=== PATIENT | male | born 1980 | race African-American/Black ===

== ENCOUNTER 2016-07-19 09:10 | Inpatient (IN) | payer SELFPAY ==
[2016-07-19] MEDS ORDERED: NORMAL SALINE 1000 ML 1,000 ML IV ONE (09:44)
[2016-07-19] MEDS ORDERED: HYDROMORPHONE HCL INJ/PF 2 MG/ML AMPULE IV ONE ×2 (09:44→13:16)
[2016-07-19] MEDS ORDERED: ONDANSETRON HCL INJ/PF 4 MG/2 ML SDV IV ONE (09:44)
[2016-07-19] MEDS ORDERED: ONDANSETRON 4 MG TAB.RAPDIS PO ONE (09:44)
--- NOTE | 2016-07-19 09:45 | ER Document Report ---
ED Medical Screen (RME) - General Mode of Arrival: Ambulatory Information source: Patient TRAVEL OUTSIDE OF THE [place] IN LAST 30 DAYS: No - HPI Patient complains to provider of: abdominal pain <DARIUS CONCEPCION - Last Filed: 07/19/16 10:30> <KIRK PALACIOS - Last Filed: 07/19/16 21:29> - General Chief Complaint: Abdominal Pain Stated Complaint: ABDOMINAL PAIN,VOMITING Time Seen by Provider: 07/19/16 09:39 Notes: Patient presents to ED complaining of abdominal pain onset this morning. patient reports that he has a history of alcohol induced pancreatitis and states he did drink yesterday at 1900. Patient also complains of vomiting this morning, chills. Patient is not on any medications. Patient is a smoker and does smoke marijuana occassionally. Patient states he took 2 of his 's Indomethacin at 0630. (DARIUS CONCEPCION) - Related Data Allergies/Adverse Reactions: No Known Allergies Allergy (Verified 07/19/16 09:37) Past Medical History - General Information source: Patient - Social History Cigarette use (# per day): Yes Chew tobacco use (# tins/day): No Drug Abuse: Marijuana Renal/ Medical History: Denies: Hx Peritoneal Dialysis <DARIUS CONCEPCION - Last Filed: 07/19/16 10:30> Review of Systems - Review of Systems Gastrointestinal: See HPI, Abdominal pain <DARIUS CONCEPCION - Last Filed: 07/19/16 10:30> Physical Exam - General General appearance: Other - appears uncomfortable, shivering - Abdominal Tenderness: Tender - diffuse, but worse epigastric tendreness to palpation - Skin Skin Color: Normal - no rash <DARIUS CONCEPCION - Last Filed: 07/19/16 10:30> Course - Laboratory Result Diagrams: 07/19/16 10:58 07/19/16 10:58 <KIRK PALACIOS - Last Filed: 07/19/16 21:29> - Vital Signs Vital signs: Temp Pulse Resp BP Pulse Ox 97.5 F 71 18 142/98 H 96 07/19/16 19:41 07/19/16 19:41 07/19/16 19:41 07/19/16 19:41 07/19/16 19:41 - Laboratory Laboratory results interpreted by me: 07/19/16 07/19/16 10:58 10:58 Plt Count 106 L Seg Neutrophils % 84.1 H Lymphocytes % 8.8 L Glucose 124 H AST 114 H ALT 109 H Amylase 290 H Lipase 1262.2 H Doctor's Discharge <DARIUS CONCEPCION - Last Filed: 07/19/16 10:30> <KIRK PALACIOS - Last Filed: 07/19/16 21:29> - Discharge Clinical Impression: acute pancreatitis Condition: Stable Disposition: ADMITTED INPATIENT Scribe Documentation - Scribe Written by Osvaldoe:: demetri Walsh, 07/19/16, 1031 acting as scribe for :: Lele <DARIUS CONCEPCION - Last Filed: 07/19/16 10:30>
[2016-07-19 11:30] LABS: ABSOLUTE LYMPHOCYTES (AUTO) 0.6 10^3/uL (0.5-4.7); ABSOLUTE MONOCYTES (AUTO) 0.5 10^3/uL (0.1-1.4); BASOPHILS % (AUTO) 0.1 % (0-2); EOSINOPHILS % (AUTO) 0.1 % (0-6); HEMATOCRIT 43.1 % (37.9-51.0); HEMOGLOBIN 14.5 g/dL (13.5-17.0); HGB HCT DIFFERENCE 0.4; LYMPHOCYTES % (AUTO) 8.8 % (13-45); MEAN CORPUSCULAR HEMOGLOBIN 30.2 pg (27.0-33.4); MEAN CORPUSCULAR HGB CONC 33.6 g/dL (32.0-36.0); MEAN CORPUSCULAR VOLUME 90 fl (80-97); MONOCYTES % (AUTO) 6.9 % (3-13); RED CELL DISTRIBUTION WIDTH 13.8 % (11.5-14.0); SEGMENTED NEUTROPHILS % (AUTO) 84.1 % (42-78); WHITE BLOOD COUNT 7.1 10^3/uL (4.0-10.5)
[2016-07-19 11:34] LABS: ALANINE AMINOTRANSFERASE 109 U/L (21-72); ALBUMIN 4.6 g/dL (3.5-5.0); ALKALINE PHOSPHATASE 66 U/L (38-126); AMYLASE 290 U/L (30-110); ANION GAP 13 (5-19); ASPARTATE AMINO TRANSFERASE 114 U/L (17-59); BILIRUBIN,DIRECT 0.3 mg/dL (0.0-0.4); BILIRUBIN,TOTAL 0.8 mg/dL (0.2-1.3); BLOOD UREA NITROGEN 10 mg/dL (7-20); CALCIUM 9.8 mg/dL (8.4-10.2); CARBON DIOXIDE 28 mmol/L (22-30); CHLORIDE 100 mmol/L (98-107); CREATININE RESULT 0.85 mg/dL (0.52-1.25); GLUCOSE 124 mg/dL (75-110); LIPASE 1262.2 U/L (23-300); POTASSIUM 4.6 mmol/L (3.6-5.0); SODIUM 141.2 mmol/L (137-145); TOTAL PROTEIN 8.1 g/dL (6.3-8.2)
[2016-07-19 11:39] LABS: ALCOHOL < 10 mg/dL (NONE DETECTED)
[2016-07-19] MEDS ORDERED: NORMAL SALINE 1000 ML 1,000 ML IV PRN ×2 (14:05→14:46)
--- NOTE | 2016-07-19 14:07 | ER Document Report ---
ED General - General Chief Complaint: Abdominal Pain Stated Complaint: ABDOMINAL PAIN,VOMITING Time Seen by Provider: 07/19/16 09:39 Mode of Arrival: Ambulatory Information source: Patient Notes: This is a 35-year-old male with a history of alcohol pancreatitis who presents to the emergency room with nausea, vomiting, epigastric pain. Patient states he did drink 4-5 beers yesterday. Medicines: None Allergies: None Past surgical history: None Primary care physician: None TRAVEL OUTSIDE OF THE [place] IN LAST 30 DAYS: No - HPI Onset: Just prior to arrival Onset/Duration: Sudden Quality of pain: Dull Severity: Moderate Pain Level: 4 Associated symptoms: Nausea, Vomiting. denies: Chills, Nonproductive cough, Productive cough, Fever, Shortness of breath Exacerbated by: Denies Relieved by: Denies Similar symptoms previously: Yes Recently seen / treated by doctor: No - Related Data Allergies/Adverse Reactions: No Known Allergies Allergy (Verified 07/19/16 09:37) Past Medical History - General Information source: Patient - Social History Smoking Status: Current Every Day Smoker Cigarette use (# per day): Yes - 1 pack per day Chew tobacco use (# tins/day): No Frequency of alcohol use: Heavy Drug Abuse: Marijuana Lives with: Family Family History: Reviewed & Not Pertinent Patient has suicidal ideation: No Patient has homicidal ideation: No - Past Medical History Cardiac Medical History: Reports: None Pulmonary Medical History: Reports: None EENT Medical History: Reports: None Neurological Medical History: Reports: None Endocrine Medical History: Reports: None Renal/ Medical History: Reports: None. Denies: Hx Peritoneal Dialysis Malignancy Medical History: Reports None GI Medical History: Reports: Other - Pancreatitis Musculoskeltal Medical History: Reports None Skin Medical History: Reports None Psychiatric Medical History: Reports: None Traumatic Medical History: Reports: None Infectious Medical History: Reports: None Surgical Hx: Negative Review of Systems - Review of Systems Constitutional: denies: Chills, Fever EENT: No symptoms reported Cardiovascular: No symptoms reported Respiratory: No symptoms reported Gastrointestinal: See HPI Genitourinary: No symptoms reported Male Genitourinary: No symptoms reported Musculoskeletal: No symptoms reported Skin: No symptoms reported Hematologic/Lymphatic: No symptoms reported Neurological/Psychological: No symptoms reported Physical Exam - Vital signs Vitals: Temp Pulse Resp BP Pulse Ox 97.6 F 61 21 H 135/94 H 99 07/19/16 09:27 07/19/16 09:27 07/19/16 09:27 07/19/16 09:27 07/19/16 09:27 Notes: Physical exam: GENERAL: 35-year-old man, alert and oriented 3, no acute distress HEAD: Atraumatic, normocephalic. EYES: Pupils equal round and reactive to light, extraocular movements intact, sclera anicteric, conjunctiva are normal. ENT: TMs normal, nares patent, oropharynx clear without exudates. Moist mucous membranes. NECK: Normal range of motion, supple without lymphadenopathy or JVD. LUNGS: Breath sounds clear to auscultation bilaterally and equal. No wheezes rales or rhonchi. HEART: Regular rate and rhythm without murmurs, rubs or gallops. ABDOMEN: Soft, normoactive bowel sounds. No tenderness to palpation. No guarding, no rebound. No masses appreciated. EXTREMITIES: Normal range of motion, no pitting or edema. No clubbing or cyanosis. NEUROLOGICAL: Cranial nerves II through XII grossly intact. Normal speech, normal gait. PSYCH: Normal mood, normal affect. SKIN: Warm, Dry, normal turgor, no rashes or lesions noted. Course - Vital Signs Vital signs: Temp Pulse Resp BP Pulse Ox 97.6 F 61 21 H 135/94 H 99 07/19/16 09:27 07/19/16 09:27 07/19/16 09:27 07/19/16 09:27 07/19/16 09:27 - Laboratory Result Diagrams: 07/19/16 10:58 07/19/16 10:58 Laboratory results interpreted by me: 07/19/16 07/19/16 10:58 10:58 Plt Count 106 L Seg Neutrophils % 84.1 H Lymphocytes % 8.8 L Glucose 124 H AST 114 H ALT 109 H Amylase 290 H Lipase 1262.2 H - Diagnostic Test Radiology reviewed: Image reviewed, Reports reviewed - Ultrasound of the abdomen shows no acute pathology Discharge - Discharge Clinical Impression: acute pancreatitis Condition: Stable Disposition: ADMITTED INPATIENT Admitting Provider: Hospitalist - Dr Torres Unit Admitted: Medical Floor
[2016-07-19] MEDS ORDERED: LEVALBUTEROL HCL NEB 0.63 MG/3 ML AMPUL NEB PRN (14:46)
[2016-07-19] MEDS ORDERED: ONDANSETRON HCL INJ/PF 4 MG/2 ML SDV IV PRN (14:46)
[2016-07-19] MEDS ORDERED: ACETAMINOPHEN 325 MG TABLET PO PRN (14:46)
[2016-07-19] MEDS ORDERED: LORAZEPAM INJ 2 MG/1 ML VIAL IV PRN (14:51)
--- NOTE | 2016-07-19 15:01 | PDOC H&P ---
History of Present Illness Admission Date/PCP: 07/19/2016 Patient complains of: Abdominal pain History of Present Illness: SHARON WEBBER is a 35 year old male with a previous history of pancreatitis who recently moved to the area from [place] presents with abdominal pain. Patient reports is been drinking for 5 beers nightly and had his last beer last night. This morning he woke up with left upper quadrant pain and radiates through to his back. He complains of nausea but no vomiting. Denies any melena or bright red blood per rectum. Patient is found to have pancreatitis but no evidence for gallstones. The patient denies any fevers or chills or night sweats. He denies any jaundice. Past Medical History Cardiac Medical History: Reports: None Pulmonary Medical History: Reports: None Neurological Medical History: Reports: None Endocrine Medical History: Reports: None Renal/ Medical History: Reports: None Malignancy Medical History: Reports: None GI Medical History: Reports: Other - History of pancreatitis Musculoskeltal Medical History: Reports: None Skin Medical History: Reports: None Psychiatric Medical History: Reports: None Traumatic Medical History: Reports: None Hematology: Reports: None Infectious Medical History: Reports: None Past Surgical History Past Surgical History: Reports: None Social History Information Source: Patient Lives with: Spouse/Significant other Smoking Status: Current Some Day Smoker Frequency of Alcohol Use: Heavy Hx Recreational Drug Use: No Drugs: None Hx Prescription Drug Abuse: No - Advance Directive Resuscitation Status: Full Code Surrogate healthcare decision maker:: . Family History Family History: This 57 alive and has hypertension and COPD. Mother is 53 alive and has hypertension Parental Family History Reviewed: Yes Children Family History Reviewed: No Sibling(s) Family History Reviewed.: No Medication/Allergy Allergies/Adverse Reactions: No Known Allergies Allergy (Verified 07/19/16 09:37) Review of Systems Constitutional: ABSENT: chills, fever(s), headache(s), weight gain, weight loss Eyes: ABSENT: visual disturbances Ears: ABSENT: hearing changes Cardiovascular: ABSENT: chest pain, dyspnea on exertion, edema, orthropnea, palpitations Respiratory: ABSENT: cough, hemoptysis Gastrointestinal: PRESENT: as per HPI, nausea. ABSENT: diarrhea, heartburn, hematemesis, hematochezia, melena, vomiting Genitourinary: ABSENT: dysuria, hematuria Musculoskeletal: ABSENT: joint swelling Integumentary: ABSENT: rash, wounds Neurological: ABSENT: abnormal gait, abnormal speech, confusion, dizziness, focal weakness, syncope Psychiatric: ABSENT: anxiety, depression, homidical ideation, suicidal ideation Endocrine: ABSENT: cold intolerance, heat intolerance, polydipsia, polyuria Physical Exam Vital Signs: Temp Pulse Resp BP Pulse Ox 97.6 F 61 21 H 135/94 H 99 07/19/16 09:27 07/19/16 09:27 07/19/16 09:27 07/19/16 09:27 07/19/16 09:27 Intake & Output 07/18/16 07/19/16 07/20/16 06:59 06:59 06:59 Weight 71.3 kg General appearance: PRESENT: no acute distress, well-developed, well-nourished Head exam: PRESENT: atraumatic, normocephalic Eye exam: PRESENT: conjunctiva pink, EOMI, PERRLA. ABSENT: scleral icterus Ear exam: PRESENT: normal external ear exam Mouth exam: PRESENT: moist, tongue midline Neck exam: ABSENT: carotid bruit, JVD, lymphadenopathy, thyromegaly Respiratory exam: PRESENT: clear to auscultation kosta. ABSENT: rales, rhonchi, wheezes Cardiovascular exam: PRESENT: RRR. ABSENT: diastolic murmur, rubs, systolic murmur Pulses: PRESENT: normal dorsalis pedis pul Vascular exam: PRESENT: normal capillary refill GI/Abdominal exam: PRESENT: normal bowel sounds, tenderness - Moderate left upper quadrant tenderness but no guarding or rebound.. ABSENT: distended, guarding, mass, organolmegaly, rebound Rectal exam: PRESENT: deferred Extremities exam: ABSENT: calf tenderness, clubbing, pedal edema Neurological exam: PRESENT: alert, awake, oriented to person, oriented to place , oriented to time, oriented to situation, CN II-XII grossly intact. ABSENT: motor sensory deficit Psychiatric exam: PRESENT: appropriate affect, normal mood. ABSENT: homicidal ideation, suicidal ideation Skin exam: PRESENT: dry, intact, warm. ABSENT: cyanosis, rash Results Laboratory Results: 07/19/16 10:58 07/19/16 10:58 07/19/16 07/19/16 10:58 10:58 WBC 7.1 RBC 4.80 Hgb 14.5 Hct 43.1 MCV 90 MCH 30.2 MCHC 33.6 RDW 13.8 Plt Count 106 L Seg Neutrophils % 84.1 H Lymphocytes % 8.8 L Monocytes % 6.9 Eosinophils % 0.1 Basophils % 0.1 Absolute Neutrophils 6.0 Absolute Lymphocytes 0.6 Absolute Monocytes 0.5 Absolute Eosinophils 0.0 Absolute Basophils 0.0 Sodium 141.2 Potassium 4.6 Chloride 100 Carbon Dioxide 28 Anion Gap 13 BUN 10 Creatinine 0.85 Est GFR ( Amer) > 60 Est GFR (Non-Af Amer) > 60 Glucose 124 H Calcium 9.8 Total Bilirubin 0.8 AST 114 H ALT 109 H Alkaline Phosphatase 66 Total Protein 8.1 Albumin 4.6 Amylase 290 H Lipase 1262.2 H Impressions: Abdomen Ultrasound 07/19/16 09:44 IMPRESSION: NORMAL RIGHT UPPER QUADRANT ULTRASOUND. Assessment & Plan - Diagnosis (1) Pancreatitis Is this a current diagnosis for this admission?: YesPlan: Patient has pancreatitis from drinking. He drank 45 beers every night recently. He has had previous episodes of pancreatitis. Ultrasound is negative for any type of gallstones. We'll admit make him nothing by mouth. We 'll give IV fluids and IV narcotics. (2) Alcohol abuse Is this a current diagnosis for this admission?: YesPlan: Patient is encouraged to quit drinking. He has no history of delirium tremens however will will write for Ativan to use when necessary. - Time Time Spent: 50 to 70 Minutes - Inpatient Certification Medical Necessity: Need Close Monitoring Due to Risk of Patient Decompensation
[2016-07-19] MEDS: ONDANSETRON 4 MG TAB.RAPDIS PO PRN (16:00)
[2016-07-19] MEDS: HYDROMORPHONE HCL INJ/PF 2 MG/ML AMPULE IV PRN ×2 (16:01→20:07)
[2016-07-20] MEDS: HYDROMORPHONE HCL INJ/PF 2 MG/ML AMPULE IV PRN ×5 (00:34→23:20)
[2016-07-20] MEDS: ONDANSETRON 4 MG TAB.RAPDIS PO PRN (06:30)
[2016-07-20 07:44] LABS: HEMATOCRIT 38.9 % (37.9-51.0); HEMOGLOBIN 13.3 g/dL (13.5-17.0); MEAN CORPUSCULAR HEMOGLOBIN 31.2 pg (27.0-33.4); MEAN CORPUSCULAR HGB CONC 34.2 g/dL (32.0-36.0); MEAN CORPUSCULAR VOLUME 91 fl (80-97); RED BLOOD COUNT 4.26 10^6/uL (4.35-5.55); RED CELL DISTRIBUTION WIDTH 13.6 % (11.5-14.0); WHITE BLOOD COUNT 6.1 10^3/uL (4.0-10.5)
[2016-07-20 07:48] LABS: ANION GAP 11 (5-19); BLOOD UREA NITROGEN 10 mg/dL (7-20); CALCIUM 9.1 mg/dL (8.4-10.2); CARBON DIOXIDE 25 mmol/L (22-30); CHLORIDE 102 mmol/L (98-107); CREATININE RESULT 0.79 mg/dL (0.52-1.25); GLUCOSE 79 mg/dL (75-110); LIPASE 1844.7 U/L (23-300); POTASSIUM 4.2 mmol/L (3.6-5.0); SODIUM 138.1 mmol/L (137-145)
--- NOTE | 2016-07-20 11:45 | PDOC PROGRESS REPORT ---
Subjective Progress Note for:: 07/20/16 Subjective:: Still complains of abdominal pain. Physical Exam Vital Signs: Temp Pulse Resp BP Pulse Ox 98.1 F 78 15 130/85 H 100 07/20/16 07:10 07/20/16 07:10 07/20/16 07:10 07/20/16 07:10 07/20/16 07:10 Intake & Output 07/19/16 07/20/16 07/21/16 06:59 06:59 06:59 Intake Total 2039 Balance 2039 Weight 74.2 kg General appearance: PRESENT: no acute distress Eye exam: PRESENT: conjunctiva pink. ABSENT: scleral icterus Mouth exam: PRESENT: moist, tongue midline Neck exam: ABSENT: JVD Respiratory exam: PRESENT: clear to auscultation kosta. ABSENT: rales, rhonchi, wheezes Cardiovascular exam: PRESENT: RRR. ABSENT: diastolic murmur, rubs, systolic murmur GI/Abdominal exam: PRESENT: normal bowel sounds, soft, tenderness - Moderate epigastric tenderness but no guarding or rebound.. ABSENT: distended, guarding , mass, organolmegaly, rebound Extremities exam: ABSENT: calf tenderness, clubbing, pedal edema Neurological exam: PRESENT: alert, awake, oriented to person, oriented to place , oriented to time, oriented to situation, CN II-XII grossly intact. ABSENT: motor sensory deficit Psychiatric exam: PRESENT: appropriate affect Skin exam: PRESENT: dry, intact, warm. ABSENT: cyanosis, rash Results Laboratory Results: 07/20/16 06:25 07/20/16 06:25 07/20/16 07/20/16 06:25 06:25 WBC 6.1 RBC 4.26 L Hgb 13.3 L Hct 38.9 MCV 91 MCH 31.2 MCHC 34.2 RDW 13.6 Plt Count 89 L Sodium 138.1 Potassium 4.2 Chloride 102 Carbon Dioxide 25 Anion Gap 11 BUN 10 Creatinine 0.79 Est GFR ( Amer) > 60 Est GFR (Non-Af Amer) > 60 Glucose 79 Calcium 9.1 Lipase 1844.7 H Impressions: Abdomen Ultrasound 07/19/16 09:44 IMPRESSION: NORMAL RIGHT UPPER QUADRANT ULTRASOUND. Assessment & Plan - Diagnosis (1) Pancreatitis Is this a current diagnosis for this admission?: YesPlan: Patient has pancreatitis from drinking. He has had previous episodes of pancreatitis. Ultrasound is negative for any type of gallstones. Continue IV fluids and narcotics. (2) Alcohol abuse Is this a current diagnosis for this admission?: YesPlan: Patient is encouraged to quit drinking. He has no history of delirium tremens however will will write for Ativan to use when necessary. - Time Time Spent with patient: 25-34 minutes - Inpatient Certification Medical Necessity: Need For IV Fluids, Need for Pain Control
[2016-07-21] MEDS: HYDROMORPHONE HCL INJ/PF 2 MG/ML AMPULE IV PRN ×2 (03:18→08:16)
[2016-07-21 05:17] LABS: ABSOLUTE EOSINOPHILS # (AUTO) 0.1 10^3/uL (0.0-0.6); ABSOLUTE MONOCYTES (AUTO) 0.4 10^3/uL (0.1-1.4); ABSOLUTE NEUT (AUTO) 3.7 10^3/uL (1.7-8.2); BASOPHILS % (AUTO) 0.5 % (0-2); EOSINOPHILS % (AUTO) 1.2 % (0-6); HEMATOCRIT 37.4 % (37.9-51.0); HEMOGLOBIN 12.8 g/dL (13.5-17.0); LYMPHOCYTES % (AUTO) 19.1 % (13-45); MEAN CORPUSCULAR HEMOGLOBIN 31.1 pg (27.0-33.4); MEAN CORPUSCULAR HGB CONC 34.1 g/dL (32.0-36.0); MEAN CORPUSCULAR VOLUME 91 fl (80-97); MONOCYTES % (AUTO) 8.2 % (3-13); RED BLOOD COUNT 4.11 10^6/uL (4.35-5.55); RED CELL DISTRIBUTION WIDTH 14.2 % (11.5-14.0); WHITE BLOOD COUNT 5.2 10^3/uL (4.0-10.5)
[2016-07-21 05:40] LABS: ANION GAP 13 (5-19); BLOOD UREA NITROGEN 10 mg/dL (7-20); CALCIUM 8.9 mg/dL (8.4-10.2); CARBON DIOXIDE 23 mmol/L (22-30); CHLORIDE 102 mmol/L (98-107); CREATININE RESULT 0.82 mg/dL (0.52-1.25); GLUCOSE 71 mg/dL (75-110); SODIUM 137.9 mmol/L (137-145)
[2016-07-21] MEDS ORDERED: OXYCODONE HCL IR 5 MG TABLET PO PRN (08:37)
[2016-07-21 13:14] VITALS: BP 128/92
--- NOTE | 2016-07-21 13:15 | PDOC DISCHARGE SUMMARY ---
General - Admit/Disc Date/PCP Admission Date/Primary Care Provider: 07/19/16 14:46 Discharge Date: 07/21/16 - Discharge Diagnosis (1) Pancreatitis Is this a current diagnosis for this admission?: YesSummary: Secondary to alcohol abuse (2) Alcohol abuse Is this a current diagnosis for this admission?: Yes - Additional Information Resuscitation Status: Full Code Discharge Diet: Regular - low fat Discharge Activity: Activity As Tolerated Home Medications: Oxycodone HCl [Oxy-Ir 5 mg Tablet] 5 mg PO Q6HP PRN #30 tablet 07/21/16 History of Present Illness History of Present Illness: SHARON WEBBER is a 35 year old male with a previous history of pancreatitis who recently moved to the area from [place] presents with abdominal pain. Patient reports is been drinking for 5 beers nightly and had his last beer last night. This morning he woke up with left upper quadrant pain and radiates through to his back. He complains of nausea but no vomiting. Denies any melena or bright red blood per rectum. Patient is found to have pancreatitis but no evidence for gallstones. The patient denies any fevers or chills or night sweats. He denies any jaundice. Hospital Course Hospital Course: I feel gentleman who presented with pancreatitis secondary to alcohol abuse. The patient was admitted and given IV fluids, IV narcotics and made nothing by mouth. The patient had improvement in his symptoms on the day of discharge she was still having some mild pain that was controlled with oxycodone and was felt that he could be discharged home. He is instructed not to drink anymore alcohol. Physical Exam Vital Signs: Temp Pulse Resp BP Pulse Ox 98.6 F 66 18 131/80 H 95 07/21/16 07:56 07/21/16 07:56 07/21/16 07:56 07/21/16 07:56 07/21/16 07:56 Intake & Output 07/20/16 07/21/16 07/22/16 06:59 06:59 06:59 Intake Total 2039 3257 Balance 2039 3257 Weight 74.2 kg 75.7 kg General appearance: PRESENT: no acute distress Eye exam: PRESENT: conjunctiva pink. ABSENT: scleral icterus Mouth exam: PRESENT: moist, tongue midline Neck exam: ABSENT: JVD Respiratory exam: PRESENT: clear to auscultation kosta. ABSENT: rales, rhonchi, wheezes Cardiovascular exam: PRESENT: RRR. ABSENT: diastolic murmur, rubs, systolic murmur GI/Abdominal exam: PRESENT: normal bowel sounds, soft. ABSENT: distended, guarding, mass, organolmegaly, rebound, tenderness Extremities exam: ABSENT: calf tenderness, clubbing, pedal edema Neurological exam: PRESENT: alert, awake, oriented to person, oriented to place , oriented to time, oriented to situation, CN II-XII grossly intact. ABSENT: motor sensory deficit Psychiatric exam: PRESENT: appropriate affect Skin exam: PRESENT: dry, intact, warm. ABSENT: cyanosis, rash Results Laboratory Results: 07/21/16 04:51 07/21/16 04:51 07/21/16 07/21/16 04:51 04:51 WBC 5.2 RBC 4.11 L Hgb 12.8 L Hct 37.4 L MCV 91 MCH 31.1 MCHC 34.1 RDW 14.2 H Plt Count 82 L Seg Neutrophils % 71.0 Lymphocytes % 19.1 Monocytes % 8.2 Eosinophils % 1.2 Basophils % 0.5 Absolute Neutrophils 3.7 Absolute Lymphocytes 1.0 Absolute Monocytes 0.4 Absolute Eosinophils 0.1 Absolute Basophils 0.0 Sodium 137.9 Potassium 4.0 Chloride 102 Carbon Dioxide 23 Anion Gap 13 BUN 10 Creatinine 0.82 Est GFR ( Amer) > 60 Est GFR (Non-Af Amer) > 60 Glucose 71 L Calcium 8.9 Lipase 514.0 H Impressions: Abdomen Ultrasound 07/19/16 09:44 IMPRESSION: NORMAL RIGHT UPPER QUADRANT ULTRASOUND. Qualifiers PATEINT BEING DISCHARGED WITH ANY OF THE FOLLOWING DIAGNOSIS?: No Plan Discharge Plan: Patient is discharged home in stable condition. Follow-up with his primary care doctor in 2 weeks. Time Spent: Less than 30 Minutes
== END 2016-07-21 13:15 | disposition home or self-care (01) | DRG 440 ==
LOC: ER 09:10 → EH 14:46 → UNDOADMIN 14:56 → 5 17:00
PROVIDERS: ADMIT Internal Medicine; ATTEND Internal Medicine
DX: K85.20 Alcohol induced acute pancreatitis without necrosis or infection (principal); F10.10 Alcohol abuse, uncomplicated; F17.200 Nicotine dependence, unspecified, uncomplicated; F17.210 Nicotine dependence, cigarettes, uncomplicated; Z82.49 Family history of ischemic heart disease and other diseases of the circulatory system
CPT/HCPCS: 36415; 76705; 80048; 80053; 80307; 82150; 83690; 85025; 85027; 96374; 96375; 96376; 99285; J1170; J2405; J7030; S0119

== ENCOUNTER 2016-07-21 18:58 | Emergency (ER) | payer SELFPAY ==
[2016-07-21 19:03] VITALS: BP 152/98
[2016-07-21] MEDS ORDERED: ONDANSETRON 4 MG TAB.RAPDIS PO ONE (20:24)
[2016-07-21] MEDS ORDERED: OXYCODONE-ACETAMINOPHEN 5-325 MG TABLET PO ONE (20:24)
--- NOTE | 2016-07-21 20:26 | ER Document Report ---
ED GI/ - General Chief Complaint: Abdominal Pain Stated Complaint: ABDOMINAL PAIN Time Seen by Provider: 07/21/16 20:18 Notes: Patient is a 55-year-old male that comes emergency department for chief complaint of upper abdominal pain. He reports he was just discharged today after being admitted for acute alcoholic pancreatitis, patient states he went home and the medications he was on more often he was experiencing some pain, he has not filled his prescriptions yet, he states he was only drinking fluids, he denies any alcohol use since admission to the hospital. Patient denies fever, vomiting, abnormal bowel movements, bloody stools, flank pain. Patient denies any surgeries, denies any other medical history other than alcohol abuse and pancreatitis previously. He denies any daily medications. TRAVEL OUTSIDE OF THE [place] IN LAST 30 DAYS: No - Related Data Allergies/Adverse Reactions: No Known Allergies Allergy (Verified 07/21/16 19:00) Past Medical History - General Information source: Patient - Social History Smoking Status: Never Smoker Frequency of alcohol use: Heavy Drug Abuse: None Lives with: Family Family History: Reviewed & Not Pertinent Patient has suicidal ideation: No Patient has homicidal ideation: No Renal/ Medical History: Denies: Hx Peritoneal Dialysis Psychiatric Medical History: Denies: Hx Depression Surgical Hx: Negative - Immunizations Hx Diphtheria, Pertussis, Tetanus Vaccination: Yes Review of Systems - Review of Systems Constitutional: No symptoms reported EENT: No symptoms reported Cardiovascular: No symptoms reported Respiratory: No symptoms reported Gastrointestinal: See HPI Genitourinary: No symptoms reported Male Genitourinary: No symptoms reported Musculoskeletal: No symptoms reported Skin: No symptoms reported Hematologic/Lymphatic: No symptoms reported Neurological/Psychological: No symptoms reported Physical Exam - Vital signs Vitals: Temp Pulse Resp BP Pulse Ox 98.6 F 79 18 152/98 H 100 07/21/16 19:01 07/21/16 19:01 07/21/16 19:01 07/21/16 19:01 07/21/16 19:01 Interpretation: Normal - General General appearance: Appears well, Alert In distress: None - Patient is alert, well appearing, does not appear to be in any distress - HEENT Head: Normocephalic, Atraumatic Eyes: Normal Extraocular movements intact: Yes Eyelashes: Normal Pupils: PERRL Mouth/Lips: Normal Mucous membranes: Normal Pharynx: Normal Neck: Normal - Respiratory Respiratory status: No respiratory distress Chest status: Nontender Breath sounds: Normal. No: Decreased air movement, Wheezing Chest palpation: Normal - Cardiovascular Rhythm: Regular. No: Tachycardia Heart sounds: Normal auscultation, S1 appreciated, S2 appreciated Murmur: No - Abdominal Inspection: Normal Distension: No distension Bowel sounds: Normal Tenderness: Tender - There is very mild tenderness in the generalized upper abdomen, no guarding, no Calixto's sign, lower abdomen is unremarkable Organomegaly: No organomegaly - Back Back: Normal, Nontender. No: Tender - Extremities General upper extremity: Normal inspection, Nontender, Normal color, Normal ROM , Normal temperature General lower extremity: Normal inspection, Nontender, Normal color, Normal ROM , Normal temperature, Normal weight bearing. No: Lazara's sign - Neurological Neuro grossly intact: Yes Cognition: Normal Orientation: AAOx4 [place] Coma Scale Eye Opening: Spontaneous Tee Coma Scale Verbal: Oriented Tee Coma Scale Motor: Obeys Commands Tee Coma Scale Total: 15 Speech: Normal Cranial nerves: Normal Cerebellar coordination: Normal Motor strength normal: LUE, RUE, LLE, RLE Additional motor exam normals: Equal knot picker cloth Sensory: Normal - Psychological Associated symptoms: Normal affect, Normal mood - Skin Skin Temperature: Warm Skin Moisture: Dry Skin Color: Normal Course - Re-evaluation Re-evalutation: Patient is well-appearing, very mild tenderness on exam with no guarding, tolerated by mouth medications without any difficulty. CBC unremarkable, chemistry unremarkable, lipase is decreased from prior at only 500 compared to maximum of 1800. Vital signs unremarkable. Discussed findings with patient, patient states relief that he is not worsening, he is asking to leave. Patient' s father is with him at bedside. Patient will be discharged home, discussed follow-up, discussed return precautions, patient states that he plans to never touch alcohol again. - Vital Signs Vital signs: Temp Pulse Resp BP Pulse Ox 98.6 F 79 18 152/98 H 100 07/21/16 19:01 07/21/16 19:01 07/21/16 19:01 07/21/16 19:01 07/21/16 19:01 - Laboratory Result Diagrams: 07/21/16 22:10 07/21/16 21:28 Laboratory results interpreted by me: 07/21/16 07/21/16 21:28 22:10 RBC 4.33 L Hgb 13.3 L Plt Count 97 L Lymphocytes % 12.4 L Lipase 500.3 H Discharge - Discharge Clinical Impression: Abdominal pain Qualifiers: Abdominal location: epigastric Qualified Code(s): R10.13 - Epigastric pain Condition: Stable Disposition: HOME, SELF-CARE Additional Instructions: Your lipase has significantly decreased from the initial measurements. Examination, vital signs, and workup otherwise good. Continue plenty of fluids, start with bland food, avoid fatty food initially, avoid any alcohol. Follow-up with primary care. Return to the emergency department for any concerning symptoms. Forms: Elevated Blood Pressure
[2016-07-21 21:51] LABS: ALANINE AMINOTRANSFERASE 72 U/L (21-72); ALBUMIN 4.2 g/dL (3.5-5.0); ALKALINE PHOSPHATASE 59 U/L (38-126); ANION GAP 13 (5-19); ASPARTATE AMINO TRANSFERASE 52 U/L (17-59); BILIRUBIN,DIRECT 0.4 mg/dL (0.0-0.4); BILIRUBIN,TOTAL 0.9 mg/dL (0.2-1.3); BLOOD UREA NITROGEN 11 mg/dL (7-20); CALCIUM 9.7 mg/dL (8.4-10.2); CARBON DIOXIDE 29 mmol/L (22-30); CHLORIDE 98 mmol/L (98-107); GLUCOSE 93 mg/dL (75-110); LIPASE 500.3 U/L (23-300); POTASSIUM 4.4 mmol/L (3.6-5.0); SODIUM 139.9 mmol/L (137-145); TOTAL PROTEIN 7.9 g/dL (6.3-8.2)
[2016-07-21 22:01] LABS: ALCOHOL < 10 mg/dL (NONE DETECTED)
[2016-07-21 22:23] LABS: ABSOLUTE EOSINOPHILS # (AUTO) 0.1 10^3/uL (0.0-0.6); ABSOLUTE LYMPHOCYTES (AUTO) 0.7 10^3/uL (0.5-4.7); ABSOLUTE MONOCYTES (AUTO) 0.5 10^3/uL (0.1-1.4); ABSOLUTE NEUT (AUTO) 4.3 10^3/uL (1.7-8.2); BASOPHILS % (AUTO) 0.3 % (0-2); EOSINOPHILS % (AUTO) 1.7 % (0-6); HEMATOCRIT 39.3 % (37.9-51.0); HEMOGLOBIN 13.3 g/dL (13.5-17.0); HGB HCT DIFFERENCE 0.6; LYMPHOCYTES % (AUTO) 12.4 % (13-45); MEAN CORPUSCULAR HEMOGLOBIN 30.6 pg (27.0-33.4); MEAN CORPUSCULAR HGB CONC 33.8 g/dL (32.0-36.0); MEAN CORPUSCULAR VOLUME 91 fl (80-97); MONOCYTES % (AUTO) 9.7 % (3-13); RED BLOOD COUNT 4.33 10^6/uL (4.35-5.55); RED CELL DISTRIBUTION WIDTH 13.9 % (11.5-14.0); SEGMENTED NEUTROPHILS % (AUTO) 75.9 % (42-78); WHITE BLOOD COUNT 5.6 10^3/uL (4.0-10.5)
[2016-07-21] MEDS ORDERED: HYDROCODONE/ACETAMINOPHEN 5-325 MG 6 TAB/DSPK PO PRN (22:53)
== END 2016-07-21 23:19 | disposition home or self-care (01) ==
LOC: ER 18:58
DX: R10.13 Epigastric pain (principal)
CPT/HCPCS: 99284; 36415; 80307; 83690; 85025; 80053; S0119

== ENCOUNTER 2016-07-27 02:50 | Emergency (ER) | payer SELFPAY ==
[2016-07-27 02:59] VITALS: BP 110/93
== END 2016-07-27 05:08 | disposition left against medical advice (07) ==
LOC: ER 02:50
DX: Z53.21 Procedure and treatment not carried out due to patient leaving prior to being seen by health care provider (principal)

== ENCOUNTER 2016-08-31 16:48 | Emergency (ER) | payer SELFPAY ==
[2016-08-31 16:55] VITALS: BP 141/94
--- NOTE | 2016-08-31 18:35 | ER Document Report ---
ED Medical Screen (RME) - General Mode of Arrival: Wheelchair Information source: Patient TRAVEL OUTSIDE OF THE [place] IN LAST 30 DAYS: No <MULUGETA MCKEON - Last Filed: 08/31/16 18:33> <TG BUSITLLO - Last Filed: 09/01/16 14:42> - General Chief Complaint: Abdominal Pain Stated Complaint: STOMACH & BACK PAIN Time Seen by Provider: 08/31/16 18:33 Notes: 35-year-old male presents to ED for upper abdominal pain radiating down back to the back for the last 2 days. He has a history of pancreatitis and continues to drink beer 6-7 24 ounce beers a day. He states that 3 days ago he had 48 ounces, 2 days ago he had 48 ounces, yesterday he had 12 ounces. I have greeted and performed a rapid initial assessment of this patient. A comprehensive ED assessment and evaluation of the patient, analysis of test results and completion of medical decision making process will be conducted by an additional ED providers. (MULUGETA MCKEON) - Related Data Allergies/Adverse Reactions: No Known Allergies Allergy (Verified 08/31/16 16:54) Past Medical History Renal/ Medical History: Denies: Hx Peritoneal Dialysis Psychiatric Medical History: Denies: Hx Depression - Immunizations Hx Diphtheria, Pertussis, Tetanus Vaccination: Yes <MULUGETA MCKEON - Last Filed: 08/31/16 18:33> Course - Laboratory Result Diagrams: 08/31/16 19:03 08/31/16 19:03 <TG BUSTILLO - Last Filed: 09/01/16 14:42> - Vital Signs Vital signs: Temp Pulse Resp BP Pulse Ox 98.4 F 83 18 141/94 H 99 08/31/16 16:53 08/31/16 16:53 08/31/16 16:53 08/31/16 16:53 08/31/16 16:53 - Laboratory Laboratory results interpreted by me: 08/31/16 08/31/16 19:03 19:03 Seg Neutrophils % 78.8 H Lymphocytes % 10.6 L Chloride 95 L Calcium 10.6 H Total Bilirubin 1.6 H AST 103 H ALT 118 H Total Protein 9.5 H Albumin 5.1 H Lipase 672.3 H Doctor's Discharge <MULUGETA MCKEON - Last Filed: 08/31/16 18:33> <TG BUSTILLO - Last Filed: 09/01/16 14:42> - Discharge Clinical Impression: Pancreatitis, Alcohol abuse, Abdominal pain Condition: Stable Disposition: HOME, SELF-CARE Instructions: Pancreatitis ([facility]) Prescriptions: Oxycodone HCl/Acetaminophen [Percocet 5-325 mg Tablet] 1 - 2 tab PO Q4H PRN #15 tablet PRN Reason: Promethazine HCl [Phenergan 25 mg Tablet] 1 - 2 tab PO Q6H PRN #15 tablet PRN Reason: Referrals: NELSON MAN MD [ACTIVE STAFF] - Follow up tomorrow
[2016-08-31 19:25] LABS: ABSOLUTE LYMPHOCYTES (AUTO) 0.7 10^3/uL (0.5-4.7); ABSOLUTE MONOCYTES (AUTO) 0.6 10^3/uL (0.1-1.4); ABSOLUTE NEUT (AUTO) 5.2 10^3/uL (1.7-8.2); BASOPHILS % (AUTO) 0.4 % (0-2); EOSINOPHILS % (AUTO) 0.4 % (0-6); HEMATOCRIT 45.5 % (37.9-51.0); HEMOGLOBIN 14.9 g/dL (13.5-17.0); HGB HCT DIFFERENCE -0.8; LYMPHOCYTES % (AUTO) 10.6 % (13-45); MEAN CORPUSCULAR HGB CONC 32.8 g/dL (32.0-36.0); MEAN CORPUSCULAR VOLUME 91 fl (80-97); MONOCYTES % (AUTO) 9.8 % (3-13); RED BLOOD COUNT 4.99 10^6/uL (4.35-5.55); RED CELL DISTRIBUTION WIDTH 13.6 % (11.5-14.0); SEGMENTED NEUTROPHILS % (AUTO) 78.8 % (42-78); WHITE BLOOD COUNT 6.6 10^3/uL (4.0-10.5)
[2016-08-31 19:44] LABS: ALBUMIN 5.1 g/dL (3.5-5.0); ANION GAP 17 (5-19); BLOOD UREA NITROGEN 12 mg/dL (7-20); CARBON DIOXIDE 29 mmol/L (22-30); CHLORIDE 95 mmol/L (98-107); CREATININE RESULT 0.94 mg/dL (0.52-1.25); GLUCOSE 85 mg/dL (75-110); POTASSIUM 4.4 mmol/L (3.6-5.0); SODIUM 140.6 mmol/L (137-145); TOTAL PROTEIN 9.5 g/dL (6.3-8.2)
[2016-08-31 19:45] LABS: ALANINE AMINOTRANSFERASE 118 U/L (21-72); ALKALINE PHOSPHATASE 79 U/L (38-126); ASPARTATE AMINO TRANSFERASE 103 U/L (17-59); BILIRUBIN,DIRECT 0.4 mg/dL (0.0-0.4); BILIRUBIN,TOTAL 1.6 mg/dL (0.2-1.3); CALCIUM 10.6 mg/dL (8.4-10.2); LIPASE 672.3 U/L (23-300)
[2016-08-31] MEDS ORDERED: HYDROMORPHONE HCL INJ/PF 2 MG/ML AMPULE IV ONE ×2 (19:57→21:28)
[2016-08-31] MEDS ORDERED: ONDANSETRON HCL INJ/PF 4 MG/2 ML SDV IV ONE (19:57)
[2016-08-31] MEDS ORDERED: NORMAL SALINE 1000 ML 1,000 ML IV PRN (19:57)
--- NOTE | 2016-08-31 21:57 | ER Document Report ---
ED General - General Chief Complaint: Abdominal Pain Stated Complaint: STOMACH & BACK PAIN Time Seen by Provider: 08/31/16 18:33 Mode of Arrival: Wheelchair Information source: Patient Notes: 35-year-old male history of alcoholic pancreatitis who is a chronic alcoholic presents with left upper quadrant abdominal pain after drinking beer yesterday. Patient admits to a few episodes of nausea vomiting denies any fevers or chills TRAVEL OUTSIDE OF THE [place] IN LAST 30 DAYS: No - HPI Onset: Yesterday Onset/Duration: Sudden Quality of pain: Achy Associated symptoms: Nausea, Vomiting Exacerbated by: Denies Relieved by: Denies Similar symptoms previously: Yes Recently seen / treated by doctor: Yes - Related Data Allergies/Adverse Reactions: No Known Allergies Allergy (Verified 08/31/16 16:54) Past Medical History - General Information source: Patient - Social History Smoking Status: Current Every Day Smoker Cigarette use (# per day): Yes Chew tobacco use (# tins/day): No Smoking Education Provided: No Frequency of alcohol use: Heavy Drug Abuse: None Family History: Reviewed & Not Pertinent Patient has suicidal ideation: No Patient has homicidal ideation: No Renal/ Medical History: Denies: Hx Peritoneal Dialysis Psychiatric Medical History: Denies: Hx Depression Surgical Hx: Negative - Immunizations Hx Diphtheria, Pertussis, Tetanus Vaccination: Yes Review of Systems - Review of Systems Notes: REVIEW OF SYSTEMS: CONSTITUTIONAL : Denies fever, chills, or sweats. Denies recent illness. EENT: Denies eye, ear, throat, or mouth pain or symptoms. Denies nasal or sinus congestion or discharge. Denies throat, tongue, or mouth swelling or difficulty swallowing. CARDIOVASCULAR: Denies chest pain. Denies palpitations or racing or irregular heart beat. Denies ankle edema. RESPIRATORY: Denies cough, cold, or chest congestion. Denies shortness of breath, difficulty breathing, or wheezing. GASTROINTESTINAL: Admits to abdominal pain nausea vomiting GENITOURINARY: Denies difficulty urinating, painful urination, burning, frequency, blood in urine, or discharge. MUSCULOSKELETAL: Denies back or neck pain or stiffness. Denies joint pain or swelling. SKIN: Denies rash, lesions or sores. HEMATOLOGIC : Denies easy bruising or bleeding. LYMPHATIC: Denies swollen, enlarged glands. NEUROLOGICAL: Denies confusion or altered mental status. Denies passing out or loss of consciousness. Denies dizziness or lightheadedness. Denies headache. Denies weakness or paralysis or loss of use of either side. Denies problems with gait or speech. Denies sensory loss, numbness, or tingling. Denies seizures. PSYCHIATRIC: Denies anxiety or stress. Denies depression, suicidal ideation, or homicidal ideation. ALL OTHER SYSTEMS REVIEWED AND NEGATIVE. Dictation was performed using [employer] voice recognition software PHYSICAL EXAMINATION: GENERAL: Well-appearing, well-nourished and in no acute distress. HEAD: Atraumatic, normocephalic. EYES: Pupils equal round and reactive to light, extraocular movements intact, sclera anicteric, conjunctiva are normal. ENT: Nares patent, oropharynx clear without exudates. Moist mucous membranes. NECK: Normal range of motion, supple without lymphadenopathy LUNGS: Breath sounds clear to auscultation bilaterally and equal. No wheezes rales or rhonchi. HEART: Regular rate and rhythm without murmurs ABDOMEN: Soft, nontender, nondistended abdomen. No guarding, no rebound. No masses appreciated. Musculoskeletal: Normal range of motion, no pitting or edema. No cyanosis. NEUROLOGICAL: Cranial nerves grossly intact. Normal speech, normal gait. Normal sensory, motor exams PSYCH: Normal mood, normal affect. SKIN: Warm, Dry, normal turgor, no rashes or lesions noted. Physical Exam - Vital signs Vitals: Temp Pulse Resp BP Pulse Ox 98.4 F 83 18 141/94 H 99 08/31/16 16:53 08/31/16 16:53 08/31/16 16:53 08/31/16 16:53 08/31/16 16:53 Course - Re-evaluation Re-evalutation: 09/01/16 03:44 Labwork physical examination noted no significant abnormality except for elevated lipase, this would be consistent with his pancreatitis. Patient was given IV fluids pain control nausea control and appears well. I will discharge him home given that he is stable and will risk for any life-threatening issues secondary to the pancreatitis at this time. Patient has been given very strict return precautions Patient encouraged to decrease his alcohol abuse After performing a Medical Screening Examination, I estimate there is LOW risk for ACUTE APPENDICITIS, BOWEL OBSTRUCTION, ACUTE CHOLECYSTITIS, PERFORATED DIVERTICULITIS, INCARCERATED HERNIA, or PERFORATED ULCER, thus I consider the discharge disposition reasonable. Also, there is no evidence or peritonitis, sepsis, or toxicity. I have reevaluated this patient multiple times and no significant life threatening changes are noted. The patient and I have discussed the diagnosis and risks, and we agree with discharging home with close follow-up with the understanding that symptoms and presentations can change. We also discussed returning to the Emergency Department immediately if new or worsening symptoms occur. We have discussed the symptoms which are most concerning (e.g., bloody stool, fever, changing or worsening pain, intractable vomiting - standard verbal up date) that necessitate immediate return. - Vital Signs Vital signs: Temp Pulse Resp BP Pulse Ox 98.4 F 83 18 141/94 H 99 08/31/16 16:53 08/31/16 16:53 08/31/16 16:53 08/31/16 16:53 08/31/16 16:53 - Laboratory Result Diagrams: 08/31/16 19:03 08/31/16 19:03 Laboratory results interpreted by me: 08/31/16 08/31/16 19:03 19:03 Seg Neutrophils % 78.8 H Lymphocytes % 10.6 L Chloride 95 L Calcium 10.6 H Total Bilirubin 1.6 H AST 103 H ALT 118 H Total Protein 9.5 H Albumin 5.1 H Lipase 672.3 H Discharge - Discharge Clinical Impression: Alcohol abuse Pancreatitis Qualifiers: Chronicity: acute Pancreatitis type: alcohol induced Acute pancreatitis complication: unspecified Qualified Code(s): K85.20 - Alcohol induced acute pancreatitis without necrosis or infection Abdominal pain Qualifiers: Abdominal location: generalized Qualified Code(s): R10.84 - Generalized abdominal pain Condition: Stable Disposition: HOME, SELF-CARE Instructions: Pancreatitis ([facility]) Prescriptions: Oxycodone HCl/Acetaminophen [Percocet 5-325 mg Tablet] 1 - 2 tab PO Q4H PRN #15 tablet PRN Reason: Promethazine HCl [Phenergan 25 mg Tablet] 1 - 2 tab PO Q6H PRN #15 tablet PRN Reason: Referrals: NELSON MAN MD [ACTIVE STAFF] - Follow up tomorrow
== END 2016-08-31 23:30 | disposition home or self-care (01) ==
LOC: ER 16:48
DX: F10.10 Alcohol abuse, uncomplicated (principal); K85.20 Alcohol induced acute pancreatitis without necrosis or infection; R10.12 Left upper quadrant pain; R11.2 Nausea with vomiting, unspecified; F17.210 Nicotine dependence, cigarettes, uncomplicated
CPT/HCPCS: 99284; 96361; 96374; 96375; 36415; 83690; 85025; 80053; J1170; J2405; J7030

== ENCOUNTER 2016-09-02 15:30 | Observation (INO) | payer SELFPAY ==
[2016-09-02 17:44] LABS: ABSOLUTE EOSINOPHILS # (AUTO) 0.1 10^3/uL (0.0-0.6); ABSOLUTE LYMPHOCYTES (AUTO) 0.9 10^3/uL (0.5-4.7); ABSOLUTE MONOCYTES (AUTO) 0.7 10^3/uL (0.1-1.4); ABSOLUTE NEUT (AUTO) 5.6 10^3/uL (1.7-8.2); APPEARANCE,URINE SLIGHTLY-CLOUDY; BASOPHILS % (AUTO) 0.1 % (0-2); BILIRUBIN,URINE MODERATE (NEGATIVE); EOSINOPHILS % (AUTO) 0.7 % (0-6); GLUCOSE, URINE NEGATIVE (NEGATIVE); HEMATOCRIT 44.5 % (37.9-51.0); HEMOGLOBIN 14.8 g/dL (13.5-17.0); HGB HCT DIFFERENCE -0.1; KETONES,URINE 20 mg/dL (NEGATIVE); LEUKOCYTE ESTERASE,URINE NEGATIVE (NEGATIVE); LYMPHOCYTES % (AUTO) 11.8 % (13-45); MEAN CORPUSCULAR HEMOGLOBIN 30.4 pg (27.0-33.4); MEAN CORPUSCULAR HGB CONC 33.1 g/dL (32.0-36.0); MEAN CORPUSCULAR VOLUME 92 fl (80-97); MONOCYTES % (AUTO) 9.5 % (3-13); NITRITE,URINE NEGATIVE (NEGATIVE); PROTEIN,URINE 100 mg/dL (NEGATIVE); RED BLOOD COUNT 4.85 10^6/uL (4.35-5.55); RED CELL DISTRIBUTION WIDTH 13.5 % (11.5-14.0); SEGMENTED NEUTROPHILS % (AUTO) 77.9 % (42-78); URINE SPECIFIC GRAVITY 1.039; WHITE BLOOD COUNT 7.2 10^3/uL (4.0-10.5)
[2016-09-02] MEDS ORDERED: NORMAL SALINE 1000 ML 1,000 ML IV ONE ×2 (17:48)
[2016-09-02 17:52] LABS: ALANINE AMINOTRANSFERASE 86 U/L (21-72); ALBUMIN 4.6 g/dL (3.5-5.0); ALKALINE PHOSPHATASE 84 U/L (38-126); ANION GAP 12 (5-19); ASPARTATE AMINO TRANSFERASE 71 U/L (17-59); BILIRUBIN,DIRECT 0.4 mg/dL (0.0-0.4); BILIRUBIN,TOTAL 1.1 mg/dL (0.2-1.3); BLOOD UREA NITROGEN 8 mg/dL (7-20); CALCIUM 10.5 mg/dL (8.4-10.2); CARBON DIOXIDE 30 mmol/L (22-30); CHLORIDE 99 mmol/L (98-107); CREATININE RESULT 0.84 mg/dL (0.52-1.25); GLUCOSE 101 mg/dL (75-110); LIPASE 1963.1 U/L (23-300); MAGNESIUM 1.8 mg/dL (1.6-2.3); POTASSIUM 4.1 mmol/L (3.6-5.0); SODIUM 140.6 mmol/L (137-145); TOTAL PROTEIN 9.2 g/dL (6.3-8.2)
[2016-09-02 17:54] LABS: ALCOHOL < 10 mg/dL (NONE DETECTED)
--- NOTE | 2016-09-02 17:55 | ER Document Report ---
ED GI/ - General Chief Complaint: Abdominal Pain Stated Complaint: ABDOMINAL PAIN Time Seen by Provider: 09/02/16 17:13 Mode of Arrival: Ambulatory Information source: Patient Notes: 5-year-old male presents to ED for an alcoholic pancreatitis. He has a history of chronic alcoholism and chronic pancreatitis. He has been drinking up until states he has not had any alcohol since . States he has had nausea and vomiting for the last couple weeks. He denies any fever or chills. TRAVEL OUTSIDE OF THE [place] IN LAST 30 DAYS: No - HPI Patient complains to provider of: Abdominal pain, Vomiting Onset: Last week Timing/Duration: Intermittent, Worse Quality of pain: Sharp Severity at maximum: Severe Severity in ED: Severe Pain Level: 5 Location: Epigastric. No: RUQ Associated symptoms: Nausea, Vomiting Exacerbated by: Movement Relieved by: Denies Similar symptoms previously: Yes Recently seen / treated by doctor: Yes - Related Data Allergies/Adverse Reactions: No Known Allergies Allergy (Verified 08/31/16 16:54) Past Medical History - General Information source: Patient - Social History Smoking Status: Current Every Day Smoker Cigarette use (# per day): Yes Chew tobacco use (# tins/day): No Smoking Education Provided: Yes - less than 2 min Frequency of alcohol use: Heavy - none since Drug Abuse: None Family History: Reviewed & Not Pertinent Patient has suicidal ideation: No Patient has homicidal ideation: No - Past Medical History Cardiac Medical History: Reports: None Pulmonary Medical History: Reports: None EENT Medical History: Reports: None Neurological Medical History: Reports: None Endocrine Medical History: Reports: None Renal/ Medical History: Reports: None Malignancy Medical History: Reports None GI Medical History: Reports: Other - pancreatitis chronic for last year Musculoskeltal Medical History: Reports Hx Musculoskeletal Trauma Skin Medical History: Reports None Psychiatric Medical History: Reports: Hx Anxiety, Hx Depression Traumatic Medical History: Reports: Hx Fractures - right ankle Infectious Medical History: Reports: None Surgical Hx: Negative Past Surgical History: Reports: None - Immunizations Immunizations up to date: Yes Hx Diphtheria, Pertussis, Tetanus Vaccination: Yes Review of Systems - Review of Systems Constitutional: No symptoms reported EENT: No symptoms reported Cardiovascular: No symptoms reported Respiratory: No symptoms reported Gastrointestinal: Abdominal pain, Nausea, Vomiting Genitourinary: No symptoms reported Male Genitourinary: No symptoms reported Musculoskeletal: Back pain Skin: No symptoms reported Hematologic/Lymphatic: No symptoms reported Neurological/Psychological: No symptoms reported -: Yes All other systems reviewed and negative Physical Exam - Vital signs Vitals: Temp Pulse Resp BP Pulse Ox 98.1 F 64 18 135/99 H 98 09/02/16 15:55 09/02/16 15:55 09/02/16 15:55 09/02/16 15:55 09/02/16 15:55 Interpretation: Normal - General General appearance: Appears well, Alert - HEENT Head: Normocephalic, Atraumatic Eyes: Normal Pupils: PERRL - Respiratory Respiratory status: No respiratory distress Chest status: Nontender Breath sounds: Normal Chest palpation: Normal - Cardiovascular Rhythm: Regular Heart sounds: Normal auscultation Murmur: No - Abdominal Inspection: Normal Distension: No distension Bowel sounds: Normal Tenderness: Tender - severe tenderness epigastric and upper mid abdomen Organomegaly: No organomegaly - Back Back: Normal, Nontender - Extremities General upper extremity: Normal inspection, Nontender, Normal color, Normal ROM , Normal temperature General lower extremity: Normal inspection, Nontender, Normal color, Normal ROM , Normal temperature, Normal weight bearing. No: Lazara's sign - Neurological Neuro grossly intact: Yes Cognition: Normal Orientation: AAOx4 Blue Coma Scale Eye Opening: Spontaneous Blue Coma Scale Verbal: Oriented Blue Coma Scale Motor: Obeys Commands Blue Coma Scale Total: 15 Speech: Normal Motor strength normal: LUE, RUE, LLE, RLE Sensory: Normal - Psychological Associated symptoms: Normal affect, Normal mood - Skin Skin Temperature: Warm Skin Moisture: Dry Skin Color: Normal Course - Vital Signs Vital signs: Temp Pulse Resp BP Pulse Ox 98.1 F 64 18 135/99 H 98 09/02/16 15:55 09/02/16 15:55 09/02/16 15:55 09/02/16 15:55 09/02/16 15:55 - Laboratory Result Diagrams: 09/02/16 17:24 09/02/16 17:24 Laboratory results interpreted by me: 09/02/16 09/02/16 09/02/16 17:24 17:24 17:24 Lymphocytes % 11.8 L Calcium 10.5 H AST 71 H ALT 86 H Total Protein 9.2 H Lipase 1963.1 H Urine Protein 100 H Urine Ketones 20 H Urine Bilirubin MODERATE H Urine Urobilinogen 2.0 H - Diagnostic Test Radiology reviewed: Image reviewed, Reports reviewed - Consults Larry Time consulted: 19:30 Reason for consultation: 09/02/16 19:38 pancreatitis, alcoholic, abdominal pain , [place] Consulted provider: will come to ER - admit observation Discharge - Discharge Clinical Impression: Pancreatitis Qualifiers: Chronicity: acute Pancreatitis type: alcohol induced Acute pancreatitis complication: unspecified Qualified Code(s): K85.20 - Alcohol induced acute pancreatitis without necrosis or infection Abdominal pain Qualifiers: Abdominal location: generalized Qualified Code(s): R10.84 - Generalized abdominal pain Disposition: ADMITTED OBSERVATION Admitting Provider: Umang howard Unit Admitted: Medical Floor
[2016-09-02] MEDS ORDERED: MORPHINE SULFATE 10 MG/ML INJ IV ONE (18:00)
[2016-09-02] MEDS ORDERED: ONDANSETRON HCL INJ/PF 4 MG/2 ML SDV IV ONE (18:00)
[2016-09-02 18:02] LABS: URINE BARBITURATES SCREEN NEGATIVE; URINE METHADONE SCREEN NEGATIVE; URINE OPIATES LOW NEGATIVE; URINE PHENCYCLIDINE SCREEN NEGATIVE
--- NOTE | 2016-09-02 19:26 | RADIOLOGY REPORT (SQ) ---
EXAM DESCRIPTION: CT ABD/PELVIS WITH IV ONLY COMPLETED DATE/TIME: 09/02/2016 7:04 pm REASON FOR STUDY: abdominal pain COMPARISON: None. TECHNIQUE: CT scan of the abdomen and pelvis performed using helical scanning technique with dynamic intravenous contrast injection. No oral contrast. Images reviewed with lung, soft tissue, and bone windows. Reconstructed coronal and sagittal MPR images reviewed. Delayed images for evaluation of the urinary system also acquired. All images stored on PACS. All CT scanners at this facility use dose modulation, iterative reconstruction, and/or weight based d osing when appropriate to reduce radiation dose to as low as reasonably achievable (ALARA). [facility]: Dose Right [facility]: CareDose [facility]: Dose Right [facility]: Teradose 4D [facility]: Blood cell Storage CONTRAST TYPE AND DOSE: 75 Isovue 370- low osmolar. RENAL FUNCTION: GFR > 60. RADIATION DOSE: 12.11. LIMITATIONS: None. FINDINGS: LOWER CHEST: No significant findings. No nodules or infiltrates. LIVER: Normal size. No masses or dilated ducts. SPLEEN: Normal size. No focal lesions. PANCREAS: Inflammation surrounding the head of the pancreas and duodenum. No mass or pancreatic duct al dilatation. GALLBLADDER: No identified stones by CT criteria. No inflammatory changes to suggest cholecystitis. ADRENAL GLANDS: No significant masses or asymmetry. RIGHT KIDNEY AND URETER: No solid masses. No significant calcifications. No hydronephrosis or hyd roureter. LEFT KIDNEY AND URETER: No solid masses. No significant calcifications. No hydronephrosis or hydr oureter. AORTA AND VESSELS: No aneurysm. No dissection. Renal arteries, SMA, celiac without stenosis. RETROPERITONEUM: No retroperitoneal adenopathy, hemorrhage or masses. BOWEL AND PERITONEAL CAVITY: No masses or inflammatory changes. No free fluid or peritoneal masses. APPENDIX: Normal. PELVIS: No mass or free fluid. Normal bladder. ABDOMINAL WALL: No masses. No hernias. BONES: No significant or acute findings. OTHER: No other significant finding. IMPRESSION: Acute pancreatitis versus peptic ulcer disease. Correlation with serum lipase is recomm ended. TECHNICAL DOCUMENTATION: JOB ID: [id number] Quality ID # [id number]: Final reports with documentation of one or more dose reduction techniques (e.g., Au tomated exposure control, adjustment of the mA and/or kV according to patient size, use of iterative reconstruction technique) 2010 [employer]- All Rights Reserved
[2016-09-02] MEDS ORDERED: IPRATROPIUM/ALBUTEROL 0.5-2.5 MG/3 ML AMPUL NEB PRN (19:28)
[2016-09-02] MEDS ORDERED: ACETAMINOPHEN 325 MG TABLET PO PRN (19:28)
[2016-09-02] MEDS ORDERED: ONDANSETRON HCL INJ/PF 4 MG/2 ML SDV IV PRN (19:28)
[2016-09-02] MEDS ORDERED: THIAMINE HCL 100 MG, FOLIC ACID 1 MG in NORMAL SALINE 50 ML IV SCH (19:30)
[2016-09-02] MEDS: NORMAL SALINE 1000 ML 1,000 ML IV SCH (20:30)
[2016-09-02] MEDS ORDERED: THIAMINE HCL INJ 200 MG/2 ML VIAL IV PRN (21:00)
[2016-09-02] MEDS ORDERED: FOLIC ACID INJ 5 MG/1 ML 10 ML VIAL IV PRN (21:01)
--- NOTE | 2016-09-02 21:01 | PDOC H&P ---
History of Present Illness Admission Date/PCP: 09/02/16 19:28 Patient complains of: Abdominal pain and nausea History of Present Illness: SHARON WEBBER is a 35 year old male with a past medical history of tobacco, alcohol dependence and alcoholic pancreatitis who had been in his usual state of health until approximately 48 hours prior to presentation developing dull epigastric pain that radiated to the back associated with intolerance of p.o. nausea and vomiting of gastric content. He recognizes symptoms from previous flare 4 months ago and sought evaluation emergency room where he found to have a lipase of [address] of the abdomen pelvis significant for pancreatitis without necrosis or pseudocyst. He started on IV fluids and symptomatic management referred to the hospital for admission. Patient states his last drink of alcohol was 4 days ago. He denies history of seizures blackouts or alcohol withdrawal. Past Medical History Cardiac Medical History: Reports: None Pulmonary Medical History: Reports: None EENT Medical History: Reports: None Neurological Medical History: Reports: None Endocrine Medical History: Reports: None Renal/ Medical History: Reports: None Malignancy Medical History: Reports: None GI Medical History: Reports: Other - pancreatitis chronic for last year Skin Medical History: Reports: None Psychiatric Medical History: Reports: Alcohol Dependency, Depression, Tobacco Dependency Infectious Medical History: Reports: None Past Surgical History Past Surgical History: Reports: None Social History Information Source: Patient Lives with: Spouse/Significant other Smoking Status: Current Every Day Smoker Frequency of Alcohol Use: Heavy Amount of Alcoholic Beverages Per Day: 18-24 beers per day Hx Recreational Drug Use: No Drugs: None Hx Prescription Drug Abuse: No - Advance Directive Resuscitation Status: Full Code Family History Family History: Reviewed & Not Pertinent, DM, Other - Alcoholism Parental Family History Reviewed: Yes Children Family History Reviewed: Yes Sibling(s) Family History Reviewed.: Yes Medication/Allergy Home Medications: Oxycodone HCl [Oxy-Ir 5 mg Tablet] 5 mg PO Q6HP PRN #30 tablet 07/21/16 Oxycodone HCl/Acetaminophen [Percocet 5-325 mg Tablet] 1 - 2 tab PO Q4H PRN #15 tablet 08/31/16 Promethazine HCl [Phenergan 25 mg Tablet] 1 - 2 tab PO Q6H PRN #15 tablet Allergies/Adverse Reactions: No Known Allergies Allergy (Verified 08/31/16 16:54) Review of Systems Constitutional: ABSENT: chills, fever(s), headache(s), weight gain, weight loss Eyes: ABSENT: visual disturbances Ears: ABSENT: hearing changes Cardiovascular: ABSENT: chest pain, dyspnea on exertion, edema, orthropnea, palpitations Respiratory: ABSENT: cough, hemoptysis Gastrointestinal: PRESENT: abdominal pain, bloating, nausea, vomiting. ABSENT: coffee ground emesis, constipation Genitourinary: ABSENT: dysuria, hematuria Musculoskeletal: ABSENT: joint swelling Integumentary: ABSENT: rash, wounds Neurological: ABSENT: abnormal gait, abnormal speech, confusion, dizziness, focal weakness, syncope Psychiatric: ABSENT: anxiety, depression, homidical ideation, suicidal ideation Endocrine: ABSENT: cold intolerance, heat intolerance, polydipsia, polyuria Hematologic/Lymphatic: ABSENT: easy bleeding, easy bruising Physical Exam Vital Signs: Temp Pulse Resp BP Pulse Ox 98.1 F 64 18 135/99 H 98 09/02/16 15:55 09/02/16 15:55 09/02/16 15:55 09/02/16 15:55 09/02/16 15:55 General appearance: PRESENT: cooperative, mild distress, well-developed, well- nourished Head exam: PRESENT: atraumatic, normocephalic Eye exam: PRESENT: conjunctiva pink, EOMI, PERRLA. ABSENT: scleral icterus Ear exam: PRESENT: normal external ear exam Mouth exam: PRESENT: moist, tongue midline Neck exam: ABSENT: carotid bruit, JVD, lymphadenopathy, thyromegaly Respiratory exam: PRESENT: clear to auscultation kosta. ABSENT: rales, rhonchi, wheezes Cardiovascular exam: PRESENT: RRR. ABSENT: diastolic murmur, rubs, systolic murmur Pulses: PRESENT: normal dorsalis pedis pul Vascular exam: PRESENT: normal capillary refill GI/Abdominal exam: PRESENT: hyperactive bowel sounds, normal bowel sounds, soft , tenderness - Epigastric pain to palpation with hyperactive bowel sounds. ABSENT: distended, guarding, mass, organolmegaly, rebound Rectal exam: PRESENT: deferred Extremities exam: PRESENT: full ROM. ABSENT: calf tenderness, clubbing, pedal edema Neurological exam: PRESENT: alert, awake, oriented to person, oriented to place , oriented to time, oriented to situation, CN II-XII grossly intact. ABSENT: motor sensory deficit Psychiatric exam: PRESENT: appropriate affect, normal mood. ABSENT: homicidal ideation, suicidal ideation Skin exam: PRESENT: dry, intact, warm. ABSENT: cyanosis, rash Results Impressions: Abdomen/Pelvis CT 09/02/16 17:42 IMPRESSION: Acute pancreatitis versus peptic ulcer disease. Correlation with serum lipase is recommended. Assessment & Plan - Diagnosis (1) Pancreatitis Qualifiers: Chronicity: acute Pancreatitis type: alcohol induced Acute pancreatitis complication: unspecified Qualified Code(s): K85.20 - Alcohol induced acute pancreatitis without necrosis or infection Is this a current diagnosis for this admission?: YesPlan: Alcoholic pancreatitis, alcohol cessation counseling, n.p.o. symptomatic management, IV fluid and electrolyte repletion as needed resume p.o. as pain resolves with trial of clear liquids. (2) Alcohol abuse Is this a current diagnosis for this admission?: YesPlan: Alcohol dependence, thiamine and folate, alcohol cessation counseling as needed Ativan though doubt liza alcohol withdrawal withdrawal (3) Tobacco dependence Is this a current diagnosis for this admission?: YesPlan: Tobacco Dependence patient received tobacco cessation counseling and offered nicotine replacement options - Time Time Spent: 30 to 50 Minutes - Inpatient Certification Medical Necessity: Need Close Monitoring Due to Risk of Patient Decompensation
[2016-09-02] MEDS: KETOROLAC TROMETHAMINE INJ/PF 30 MG/1 ML SDV IV PRN (22:35)
[2016-09-02] MEDS: HEPARIN SOD (PORCINE) 5,000 UNIT/ML 1 ML SYRINGE SUBCUT SCH (22:35)
[2016-09-02] MEDS ORDERED: THIAMINE HCL INJ 200 MG/2 ML VIAL ONE (22:51)
[2016-09-02] MEDS ORDERED: FOLIC ACID INJ 5 MG/1 ML 10 ML VIAL ONE (22:51)
[2016-09-03] MEDS: NORMAL SALINE 1000 ML 1,000 ML IV SCH ×2 (02:03→05:20)
[2016-09-03 04:42] LABS: ABSOLUTE EOSINOPHILS # (AUTO) 0.1 10^3/uL (0.0-0.6); ABSOLUTE LYMPHOCYTES (AUTO) 1.4 10^3/uL (0.5-4.7); ABSOLUTE MONOCYTES (AUTO) 0.6 10^3/uL (0.1-1.4); BASOPHILS % (AUTO) 0.3 % (0-2); EOSINOPHILS % (AUTO) 2.2 % (0-6); HEMATOCRIT 38.1 % (37.9-51.0); HGB HCT DIFFERENCE -0.9; LYMPHOCYTES % (AUTO) 22.4 % (13-45); MEAN CORPUSCULAR HEMOGLOBIN 30.2 pg (27.0-33.4); MEAN CORPUSCULAR HGB CONC 32.6 g/dL (32.0-36.0); MEAN CORPUSCULAR VOLUME 93 fl (80-97); MONOCYTES % (AUTO) 9.6 % (3-13); RED BLOOD COUNT 4.11 10^6/uL (4.35-5.55); RED CELL DISTRIBUTION WIDTH 13.5 % (11.5-14.0); SEGMENTED NEUTROPHILS % (AUTO) 65.5 % (42-78); WHITE BLOOD COUNT 6.2 10^3/uL (4.0-10.5)
[2016-09-03 04:44] LABS: HEMOGLOBIN 12.4 g/dL (13.5-17.0)
[2016-09-03 04:48] LABS: ALANINE AMINOTRANSFERASE 67 U/L (21-72); ALBUMIN 3.3 g/dL (3.5-5.0); ALKALINE PHOSPHATASE 56 U/L (38-126); ANION GAP 8 (5-19); ASPARTATE AMINO TRANSFERASE 46 U/L (17-59); BILIRUBIN,DIRECT 0.2 mg/dL (0.0-0.4); BILIRUBIN,TOTAL 0.9 mg/dL (0.2-1.3); BLOOD UREA NITROGEN 7 mg/dL (7-20); CALCIUM 8.9 mg/dL (8.4-10.2); CARBON DIOXIDE 28 mmol/L (22-30); CHLORIDE 106 mmol/L (98-107); CREATININE RESULT 0.87 mg/dL (0.52-1.25); GLUCOSE 82 mg/dL (75-110); LIPASE 1057.4 U/L (23-300); POTASSIUM 4.4 mmol/L (3.6-5.0); SODIUM 141.6 mmol/L (137-145); TOTAL PROTEIN 6.5 g/dL (6.3-8.2)
[2016-09-03] MEDS: HEPARIN SOD (PORCINE) 5,000 UNIT/ML 1 ML SYRINGE SUBCUT SCH (05:20)
[2016-09-03] MEDS: KETOROLAC TROMETHAMINE INJ/PF 30 MG/1 ML SDV IV PRN ×3 (05:20→19:56)
[2016-09-03] MEDS ORDERED: ONDANSETRON HCL INJ/PF 4 MG/2 ML SDV IV PRN ×2 (07:44→10:04)
[2016-09-03] MEDS ORDERED: THIAMINE HCL 100 MG, FOLIC ACID 1 MG in NORMAL SALINE 50 ML IV SCH ×2 (10:00→22:00)
[2016-09-03] MEDS: NORMAL SALINE 1000 ML 1,000 ML IV PRN ×3 (11:32→21:11)
[2016-09-03] MEDS ORDERED: LORAZEPAM 1 MG TABLET PO PRN (18:57)
--- NOTE | 2016-09-03 19:13 | PROGRESS NOTE E ---
Progress Note NAME: SHARON WEBBER : 1980 AGE: 35Y DATE: 09/03/2016 ROOM: 415 SUBJECTIVE: The patient was seen earlier today on rounds. He states that he felt a little better prior in his admission, however, he still is having some belly tenderness. No nausea, vomiting. The patient denies any fevers, chills. No shortness of breath, dizziness, chest pain. The patient has been afebrile. Blood pressure has been in a good range. The patient does not voice any other concerns at this time. REVIEW OF SYSTEMS: The rest of the review of systems is negative. MEDICATIONS: Medications have been reviewed. OBJECTIVE: GENERAL: The patient is a 35-year-old -[place] male who is awake, alert and oriented to person, place, time, and situation. He is verbal, conversational, does not appear to be in any acute distress. VITAL SIGNS: As follows: Temperature is 97.1, pulse 83, respirations 19, blood pressure 129/99, oxygen saturation 100% on room air. SKIN: Warm and dry. No rash. He is not diaphoretic. HEENT: Pupils equal, round, reactive to light and accommodation. Conjunctiva is pink. NECK: No JVD. CARDIOVASCULAR SYSTEM: Heart is regular. There is no murmur or rub. CHEST: Clear, symmetrical, unlabored. ABDOMEN: Soft, nontender, nondistended. BACK: No CVA tenderness, sacral edema. EXTREMITIES: No clubbing, cyanosis, edema. PSYCHIATRIC: Appropriate affect. Pleasant mood. DIAGNOSTICS: Lab values are as follows: Hematology obtained on 09/03/2016; WBCs are 6.2, hemoglobin is 12.4, hematocrit is 38.1, platelet count is 111,000. Chemistry obtained on 09/03/2016: Sodium is 141, potassium 4.4, chloride is , carbon dioxide 28, BUN 7, creatinine is 0.87, glucose 82, calcium is 8.9, magnesium is 1.8, total bilirubin 0.9, AST 46, AST is 67, alkaline phosphatase 56, total protein 6.5, albumin 3.3, lipase is 1057. IMPRESSION AND PLAN: 1. ACUTE ALCOHOLIC PANCREATITIS. This has been a recurrent episode. The patient likely has improved, however, the patient is still symptomatic. Will continue NPO status. Will continue to aggressively hydrate. Will repeat lipase in the a.m. and follow. 2. ABNORMAL LFTS. This has resolved with hydration and abstinence from alcohol. 3. ALCOHOL DEPENDENCY. Will continue to supplement B vitamins, and benzodiazepines p.r.n. DISPOSITION: The patient is a FULL CODE. Pending patient's symptomatology and diagnostic findings, will re-evaluate in the a.m. for possible discharge. Time spent on this followup including assessment, plan, physical examination, patient education, review of previous records 20 minutes. DICTATING PHYSICIAN: CANDI GOLDMAN NP [id number] PHY#: [id number] ID: [id number] JOB#: [id number] ACCT: [id number] cc:CANDI GOLDMAN NP > MTDD
[2016-09-04] MEDS: KETOROLAC TROMETHAMINE INJ/PF 30 MG/1 ML SDV IV PRN (02:17)
[2016-09-04] MEDS: NORMAL SALINE 1000 ML 1,000 ML IV PRN (02:17)
[2016-09-04 06:34] LABS: ANION GAP 10 (5-19); BLOOD UREA NITROGEN 9 mg/dL (7-20); CALCIUM 8.4 mg/dL (8.4-10.2); CARBON DIOXIDE 22 mmol/L (22-30); CHLORIDE 106 mmol/L (98-107); GLUCOSE 61 mg/dL (75-110); LIPASE 639.6 U/L (23-300); MAGNESIUM 1.4 mg/dL (1.6-2.3); POTASSIUM 3.9 mmol/L (3.6-5.0); SODIUM 138.1 mmol/L (137-145)
--- NOTE | 2016-09-04 07:47 | Physician Advisory Note ---
Physician Advisor ProgressNote .: Pursuant to the plan for [facility], I have reviewed the medical record for this patient. Physician Advisor Statement: Approp for Inpt status as of 09/03PM, due to continued symptoms, need to remain NPO 2/continued aggressive IV hydration. CK
[2016-09-04 09:47] VITALS: BP 138/81
--- NOTE | 2016-09-05 16:18 | DISCHARGE SUMMARY E ---
Discharge Summary NAME: SHARON WEBBER : 1980 AGE: 35Y ADMITTED: 09/02/2016 DISCHARGED: 09/04/2016 CODE STATUS: FULL CODE. PRIMARY CARE PROVIDER: [facility] DISCHARGE DIAGNOSES: 1. Acute alcohol pancreatitis. 2. Abnormal LFTs secondary to alcohol. 3. Alcohol dependency. DISCHARGE MEDICATIONS: Phenergan 25 mg p.o. q.6 hours p.r.n. DIET: Low fat. No alcohol. ACTIVITY: As tolerated. HISTORY OF PRESENT ILLNESS: The patient is a 35-year-old -[place]gent[place] male with a past medical history of previous admissions with pancreatitis as well as alcohol dependent. The patient presented to the emergency department with the chief complaint of abdominal pain and nausea. The patient reports being in his usual state of health until 48 hours prior to presentation when the patient developed dull epigastric pain which radiated to his back and was associated with intolerance of oral intake. The patient recognizes symptoms from his previous flares of pancreatitis. While in the emergency department, the patient was found to have a lipase of 1700. A CT of abdomen and pelvis significant for pancreatitis without necrosis. Patient was started on IV fluids, given antiemetics, and was referred to the hospitalist for admission and management. The patient states that his last drink of alcohol was 4 days prior. The patient denies any history of seizures, blackouts, or withdrawal symptoms. HOSPITAL COURSE: The patient was admitted to continuous telemetry unit. The patient was aggressively hydrated and was maintained n.p.o. The patient's lipase improved significantly overnight and almost normalized by 09/04. The patient was asymptomatic the morning of 09/04/2016 and the patient was started on a diet for which he tolerated without issue of clear liquids, no fat. The patient is instructed to avoid alcohol and to slowly advance diet as tolerated. The patient is in agreeance to this plan and is ready for discharge. DIAGNOSTICS: Lab values are as follows: Hematology obtained on 09/03/2016: WBCs are 6.2, hemoglobin is 12.4, hematocrit is 38.1, platelet count is 111,000. Chemistry obtained on 09/04/2016: Sodium is 138, potassium is 3.9, chloride is 106, carbon dioxide 22, BUN 9, creatinine is 0.80, glucose 61, calcium is 8.4, magnesium is 1.4, bilirubin is 0.9, AST 46, ALT is 67, alk phos 56, total protein 6.5, albumin 3.3, lipase is 639. Toxicology obtained on 09/02/[address] of the abdomen and pelvis obtained on 09/02/2016 reveals acute pancreatitis versus peptic ulcer disease. Correlation with serum lipase is recommended. PHYSICAL EXAMINATION: GENERAL: On examination, the patient is a well-developed, well-nourished, 35-year-old -[place] male who is awake, alert, and oriented to person, place, time, and situation. He is verbal, conversational, ambulatory, and does not appear to be in any acute distress. VITAL SIGNS: Temperature 98.0, pulse 89, respirations 18, blood pressure 138/81, oxygen saturation is 100% on room air. SKIN: Warm and dry. No rash. Not diaphoretic. HEENT: Pupils equal, round, reactive to light and accommodation. Conjunctivae are pink. No JVP. CARDIOVASCULAR: Heart is regular with no murmur or rub. CHEST: Clear, symmetrical, unlabored. ABDOMEN: Soft, nontender, nondistended. BACK: No CVA tenderness or sacral edema. EXTREMITIES: No clubbing, cyanosis, or edema. DISCHARGE PLANNING: The patient was advised to followup with primary care provider within 1 week for hospital followup. Time spent on this discharge including assessment, plan, physical examination, and patient education is 15 minutes. DICTATING PHYSICIAN: CANDI GOLDMAN NP [id number] PHY#: [id number] ID: [id number] JOB#: [id number] ACCT: [id number] cc:BRYON VINCENT M.D., MICHAEL NP >
== END 2016-09-04 10:04 | disposition home or self-care (01) ==
LOC: ER 15:30 → EH 19:28 → UNDOADMOB 19:46 → 4N 22:23
PROVIDERS: ADMIT Internal Medicine; ATTEND Internal Medicine
DX: K85.20 Alcohol induced acute pancreatitis without necrosis or infection (principal); R79.89 Other specified abnormal findings of blood chemistry; F10.20 Alcohol dependence, uncomplicated; K86.0 Alcohol-induced chronic pancreatitis; F17.210 Nicotine dependence, cigarettes, uncomplicated; M54.9 Dorsalgia, unspecified
CPT/HCPCS: 99285; 96361; 96374; 96375; 36415 ×3; 80307 ×2; 83690 ×3; 83735 ×2; 85025 ×2; 80048; 80053 ×2; 81001; 74177; G0378 ×4; J1644 ×2; J3490; J1885 ×3; J2270; J3411 ×2; J2405; J7030 ×3

== ENCOUNTER 2016-10-29 23:00 | Emergency (ER) | payer MEDICAID ==
[2016-10-29] MEDS ORDERED: ASPIRIN 81 MG TABLET, CHEWABLE ONE (23:47)
[2016-10-29] MEDS ORDERED: ASPIRIN 81 MG TABLET, CHEWABLE PO ONE (23:48)
--- NOTE | 2016-10-29 23:51 | ER Document Report ---
ED General - General Chief Complaint: Chest Pain Stated Complaint: CHEST PAIN Time Seen by Provider: 10/29/16 23:43 Notes: Patient is a 35-year-old male that comes emergency department for chief complaint of pain in his left upper abdomen and chest. He states symptoms started about 3 hours ago. He reports nausea but denies vomiting. He denies shortness of breath, fever, cough. He denies hematochezia. He admits to 3 beers earlier today and drinking for the past few days, he does have a history of alcoholic pancreatitis. He denies any surgeries, daily medications. He denies any other medical history other than smoking. TRAVEL OUTSIDE OF THE [place] IN LAST 30 DAYS: No - Related Data Allergies/Adverse Reactions: No Known Allergies Allergy (Verified 08/31/16 16:54) Past Medical History - General Information source: Patient - Social History Smoking Status: Current Every Day Smoker Smoking Education Provided: Yes - <3 min Frequency of alcohol use: Heavy Drug Abuse: None Lives with: Family Family History: Reviewed & Not Pertinent, DM, Other - Alcoholism Patient has suicidal ideation: No Patient has homicidal ideation: No Renal/ Medical History: Denies: Hx Peritoneal Dialysis Musculoskeltal Medical History: Reports Hx Musculoskeletal Trauma Psychiatric Medical History: Reports: Hx Anxiety Denies: Hx Depression Traumatic Medical History: Reports: Hx Fractures - right ankle Surgical Hx: Negative - Immunizations Immunizations up to date: Yes Hx Diphtheria, Pertussis, Tetanus Vaccination: Yes Review of Systems - Review of Systems Constitutional: No symptoms reported EENT: No symptoms reported Cardiovascular: See HPI Respiratory: No symptoms reported Gastrointestinal: See HPI Genitourinary: No symptoms reported Male Genitourinary: No symptoms reported Musculoskeletal: See HPI Skin: No symptoms reported Hematologic/Lymphatic: No symptoms reported Neurological/Psychological: No symptoms reported Physical Exam - Vital signs Vitals: Temp Pulse Resp BP Pulse Ox 98.5 F 84 16 130/86 H 97 10/29/16 23:13 10/29/16 23:13 10/29/16 23:13 10/29/16 23:13 10/29/16 23:13 Interpretation: Normal - General General appearance: Alert, Anxious In distress: Mild - Patient appears somewhat uncomfortable and he also appears to be anxious, however he does not appear to be in distress - HEENT Head: Normocephalic, Atraumatic Eyes: Normal Pupils: PERRL - Respiratory Respiratory status: No respiratory distress Chest status: Tender - Tender over the left mid anterior chest wall, reproducible, this is exacerbated by range of motion of the left arm and shoulder. Otherwise unremarkable chest examination Breath sounds: Normal. No: Decreased air movement, Wheezing Chest palpation: Normal - Cardiovascular Rhythm: Regular. No: Tachycardia Heart sounds: Normal auscultation, S1 appreciated, S2 appreciated Murmur: No - Abdominal Inspection: Normal Distension: No distension Bowel sounds: Normal Tenderness: Tender - Mild epigastric and left upper quadrant tenderness, otherwise unremarkable abdomen. No: Guarding Organomegaly: No organomegaly - Back Back: Normal, Nontender. No: Tender - Extremities General upper extremity: Normal inspection, Nontender, Normal ROM, Normal strength General lower extremity: Normal inspection, Nontender, Normal ROM, Normal strength - Neurological Neuro grossly intact: Yes Cognition: Normal Orientation: AAOx4 [place] Coma Scale Eye Opening: Spontaneous Tee Coma Scale Verbal: Oriented Tee Coma Scale Motor: Obeys Commands [place] Coma Scale Total: 15 Speech: Normal Motor strength normal: LUE, RUE, LLE, RLE Sensory: Normal - Psychological Associated symptoms: Normal affect, Normal mood - Skin Skin Temperature: Warm Skin Moisture: Dry Skin Color: Normal Course - Re-evaluation Re-evalutation: EKG shows sinus rhythm with no T-wave inversions or ST segment changes in consecutive leads. Machine reads as normal. Chest x-ray is unremarkable. CBC unremarkable. Lipase is surprisingly normal. Patient does have left upper quadrant and epigastric tenderness on exam although this is mild with no guarding. Remaining abdominal exam is unremarkable. Chemistry shows LFTs consistent with alcohol abuse. Creatinine kinase is very elevated, patient has a lot of tenderness over his left chest wall. He denies any injury. There is no abnormal heat or induration to the area, simply tender on palpation and with patient movement. Patient given to IV fluid bag boluses. Troponin cycled and is negative, creatinine kinase cycled and is significantly downtrending. I discussed workup in detail with patient and patient's . Discussed suspected gastritis/esophagitis component, discussed chest wall component, discussed remaining workup findings. Patient will be given muscle relaxer for his chest wall, Zantac for gastritis, advised him that not only should he avoid alcohol from a gastritis standpoint but he should also avoid alcohol for life because of his pancreatitis history. Discussed return precautions in detail, states agreement, patient states understanding and agreement. - Vital Signs Vital signs: Temp Pulse Resp BP Pulse Ox 98.5 F 84 14 132/101 H 100 10/29/16 23:13 10/29/16 23:13 10/30/16 05:48 10/30/16 05:48 10/30/16 05:48 - Laboratory Result Diagrams: 10/29/16 23:49 10/29/16 23:49 Laboratory results interpreted by me: 10/29/16 10/29/16 10/30/16 23:49 23:49 03:45 Plt Count 138 L Calcium 10.3 H AST 115 H ALT 119 H Creatine Kinase 1162 H 915 H Total Protein 8.4 H Discharge - Discharge Clinical Impression: Chest wall pain Abdominal pain Qualifiers: Abdominal location: upper abdomen, unspecified Qualified Code(s): R10.10 - Upper abdominal pain, unspecified Condition: Stable Disposition: HOME, SELF-CARE Additional Instructions: You do not have pancreatitis, your heart workup is normal. You have an elevated muscle enzyme, drink plenty of water, avoid dehydrating fluids such as caffeine drinks and alcohol. Apply heat to the area, take Valium as prescribed. I also recommend taking the Zantac as prescribed for gastritis, also stop smoking. Start with bland foods. Follow-up with primary care. Your liver enzymes are elevated today (probably from the alcohol) and this will need monitoring. Return to emergency department immediately if you worsen in any way including difficulty breathing, vomiting, etc. Prescriptions: Diazepam [Valium 5 mg Tablet] 5 mg PO TID #12 tablet
[2016-10-29] MEDS ORDERED: NORMAL SALINE 1000 ML 1,000 ML IV ONE ×2 (23:53)
[2016-10-29] MEDS ORDERED: ONDANSETRON HCL INJ/PF 4 MG/2 ML SDV IV ONE (23:54)
[2016-10-29] MEDS ORDERED: MORPHINE SULFATE 10 MG/ML INJ IV ONE (23:54)
[2016-10-30 00:12] LABS: ABSOLUTE EOSINOPHILS # (AUTO) 0.1 10^3/uL (0.0-0.6); ABSOLUTE LYMPHOCYTES (AUTO) 1.2 10^3/uL (0.5-4.7); ABSOLUTE MONOCYTES (AUTO) 0.5 10^3/uL (0.1-1.4); ABSOLUTE NEUT (AUTO) 3.5 10^3/uL (1.7-8.2); BASOPHILS % (AUTO) 0.6 % (0-2); EOSINOPHILS % (AUTO) 1.1 % (0-6); HEMATOCRIT 42.8 % (37.9-51.0); HEMOGLOBIN 14.3 g/dL (13.5-17.0); HGB HCT DIFFERENCE 0.1; LYMPHOCYTES % (AUTO) 22.2 % (13-45); MEAN CORPUSCULAR HEMOGLOBIN 30.8 pg (27.0-33.4); MEAN CORPUSCULAR HGB CONC 33.4 g/dL (32.0-36.0); MEAN CORPUSCULAR VOLUME 92 fl (80-97); MONOCYTES % (AUTO) 8.8 % (3-13); RED BLOOD COUNT 4.63 10^6/uL (4.35-5.55); RED CELL DISTRIBUTION WIDTH 13.7 % (11.5-14.0); SEGMENTED NEUTROPHILS % (AUTO) 67.3 % (42-78); WHITE BLOOD COUNT 5.2 10^3/uL (4.0-10.5)
[2016-10-30 00:16] LABS: ALANINE AMINOTRANSFERASE 119 U/L (21-72); ALBUMIN 4.7 g/dL (3.5-5.0); ALCOHOL 63 mg/dL (NONE DETECTED); ALKALINE PHOSPHATASE 68 U/L (38-126); ANION GAP 12 (5-19); ASPARTATE AMINO TRANSFERASE 115 U/L (17-59); BILIRUBIN,DIRECT 0.3 mg/dL (0.0-0.4); BILIRUBIN,TOTAL 0.6 mg/dL (0.2-1.3); BLOOD UREA NITROGEN 11 mg/dL (7-20); CALCIUM 10.3 mg/dL (8.4-10.2); CARBON DIOXIDE 27 mmol/L (22-30); CHLORIDE 101 mmol/L (98-107); CREATINE KINASE 1162 U/L (55-170); CREATININE RESULT 1.04 mg/dL (0.52-1.25); GLUCOSE 78 mg/dL (75-110); LIPASE 123.5 U/L (23-300); POTASSIUM 4.1 mmol/L (3.6-5.0); SODIUM 140.1 mmol/L (137-145); TOTAL PROTEIN 8.4 g/dL (6.3-8.2)
[2016-10-30 00:27] LABS: CREATINE KINASE MB 0.53 ng/mL (<4.55)
[2016-10-30 00:29] LABS: TROPONIN I < 0.012 ng/mL
[2016-10-30] MEDS ORDERED: SUCRALFATE 1 GM TABLET PO ONE (00:52)
[2016-10-30] MEDS ORDERED: MAG HYDROX/AL HYDROX/SIMETH SUSP 30 ML UDCUP PO ONE (00:57)
[2016-10-30] MEDS ORDERED: FAMOTIDINE 20 MG TABLET PO ONE (00:57)
--- NOTE | 2016-10-30 01:16 | RADIOLOGY REPORT (SQ) ---
EXAM DESCRIPTION: CHEST SINGLE VIEW COMPLETED DATE/TIME: 10/30/2016 12:11 am REASON FOR STUDY: chest pain COMPARISON: None. EXAM PARAMETERS: NUMBER OF VIEWS: One view. TECHNIQUE: Single frontal radiographic view of the chest acquired. RADIATION DOSE: NA LIMITATIONS: None. FINDINGS: LUNGS AND PLEURA: No opacities, masses or pneumothorax. No pleural effusion. MEDIASTINUM AND HILAR STRUCTURES: No masses. Contour normal. HEART AND VASCULAR STRUCTURES: Heart normal in size. Normal vasculature. BONES: No acute findings. HARDWARE: None in the chest. OTHER: No other significant finding. IMPRESSION: NO ACUTE RADIOGRAPHIC FINDING IN THE CHEST. TECHNICAL DOCUMENTATION: JOB ID: [id number]
[2016-10-30 04:37] LABS: APPEARANCE,URINE CLEAR; BILIRUBIN,URINE NEGATIVE (NEGATIVE); GLUCOSE, URINE NEGATIVE (NEGATIVE); KETONES,URINE NEGATIVE (NEGATIVE); LEUKOCYTE ESTERASE,URINE NEGATIVE (NEGATIVE); NITRITE,URINE NEGATIVE (NEGATIVE); PROTEIN,URINE NEGATIVE (NEGATIVE); URINE SPECIFIC GRAVITY 1.023; UROBILINOGEN,URINE NEGATIVE mg/dL (<2.0)
[2016-10-30] MEDS ORDERED: DIAZEPAM 5 MG TABLET PO ONE (05:01)
[2016-10-30 05:59] VITALS: BP 132/101
--- NOTE | 2016-10-30 09:28 | EKG REPORT ---
SEVERITY:- NORMAL ECG - SINUS RHYTHM : Confirmed by: Tl Kwon 30-Oct-2016 09:27:33
== END 2016-10-30 05:48 | disposition home or self-care (01) ==
LOC: ER 23:00
DX: R07.89 Other chest pain (principal); R10.10 Upper abdominal pain, unspecified; R11.0 Nausea; F17.210 Nicotine dependence, cigarettes, uncomplicated
CPT/HCPCS: 99284; 36415; 82553; 80307; 82550; 83690; 85025; 80053; 81001; 84484; 71010; 93005; 93010; J2270; J2405; J7030

== ENCOUNTER 2017-04-01 18:54 | Observation (INO) | payer SELFPAY ==
[2017-04-01] MEDS ORDERED: ACETAMINOPHEN 325 MG TABLET PO ONE (21:01)
[2017-04-01] MEDS ORDERED: HYDROCODONE/ACETAMINOPHEN 10-325 MG TABLET PO ONE (21:54)
[2017-04-01] MEDS ORDERED: ONDANSETRON 4 MG TAB.RAPDIS PO ONE (21:54)
--- NOTE | 2017-04-01 21:58 | ER Document Report ---
ED Medical Screen (RME) - General Chief Complaint: Abdominal Pain Stated Complaint: ABDOMINAL PAIN Time Seen by Provider: 04/01/17 21:50 Information source: Patient TRAVEL OUTSIDE OF THE [place] IN LAST 30 DAYS: No - HPI Notes: 04/01/17 21:56 36-year-old male with history of starting yesterday. It does radiate around to his upper abdomen diffusely. He has had associated nausea and vomiting with it as well as some light colored loose stools. Denies hemoptysis melena or hematochezia. No fever. Feels consistent with pancreatitis his had before. He does continue to drink alcohol. Lungs are clear to auscultation on exam. In a sitting position, appears to have fairly diffuse tenderness but there is no obvious rebound or guarding noted. I have greeted and performed a rapid initial assessment of this patient as the patient is being boarded with patients waiting inpatient rooms. A comprehensive ED assessment with additional diagnostic/treatment considerations , analysis of diagnostic testing and completion of the medical decision making process will be conducted by additional ED providers. - Related Data Allergies/Adverse Reactions: No Known Allergies Allergy (Verified 04/01/17 19:11) Past Medical History Renal/ Medical History: Denies: Hx Peritoneal Dialysis Musculoskeltal Medical History: Reports Hx Musculoskeletal Trauma Psychiatric Medical History: Reports: Hx Anxiety Denies: Hx Depression Traumatic Medical History: Reports: Hx Fractures - right ankle - Immunizations Immunizations up to date: Yes Hx Diphtheria, Pertussis, Tetanus Vaccination: Yes Physical Exam - Vital signs Vitals: Temp Pulse Resp BP Pulse Ox 98.9 F 82 20 110/78 96 04/01/17 19:19 04/01/17 19:19 04/01/17 19:19 04/01/17 19:19 04/01/17 19:19 Course - Vital Signs Vital signs: Temp Pulse Resp BP Pulse Ox 98.9 F 82 20 110/78 96 04/01/17 19:19 04/01/17 19:19 04/01/17 19:19 04/01/17 19:19 04/01/17 19:19
[2017-04-01 22:30] LABS: ABSOLUTE LYMPHOCYTES (AUTO) 0.7 10^3/uL (0.5-4.7); ABSOLUTE MONOCYTES (AUTO) 0.4 10^3/uL (0.1-1.4); ABSOLUTE NEUT (AUTO) 5.9 10^3/uL (1.7-8.2); BASOPHILS % (AUTO) 0.4 % (0-2); EOSINOPHILS % (AUTO) 0.2 % (0-6); HEMATOCRIT 42.9 % (37.9-51.0); HEMOGLOBIN 14.4 g/dL (13.5-17.0); LYMPHOCYTES % (AUTO) 9.6 % (13-45); MEAN CORPUSCULAR HEMOGLOBIN 31.1 pg (27.0-33.4); MEAN CORPUSCULAR HGB CONC 33.6 g/dL (32.0-36.0); MEAN CORPUSCULAR VOLUME 93 fl (80-97); MONOCYTES % (AUTO) 5.7 % (3-13); PLATELET COUNT 159 10^3/uL (150-450); RED BLOOD COUNT 4.63 10^6/uL (4.35-5.55); RED CELL DISTRIBUTION WIDTH 13.2 % (11.5-14.0); SEGMENTED NEUTROPHILS % (AUTO) 84.1 % (42-78); TOTAL CELLS COUNTED % (AUTO) 100 %
[2017-04-01 22:35] LABS: APPEARANCE,URINE SLIGHTLY-CLOUDY; BILIRUBIN,URINE NEGATIVE (NEGATIVE); COLOR,URINE YELLOW; GLUCOSE, URINE NEGATIVE (NEGATIVE); KETONES,URINE TRACE mg/dL (NEGATIVE); LEUKOCYTE ESTERASE,URINE NEGATIVE (NEGATIVE); NITRITE,URINE NEGATIVE (NEGATIVE); PROTEIN,URINE NEGATIVE (NEGATIVE); URINE SPECIFIC GRAVITY 1.018; UROBILINOGEN,URINE NEGATIVE mg/dL (<2.0)
[2017-04-01 22:48] LABS: ALANINE AMINOTRANSFERASE 175 U/L (21-72); ALBUMIN 4.6 g/dL (3.5-5.0); ALKALINE PHOSPHATASE 69 U/L (38-126); ANION GAP 11 (5-19); ASPARTATE AMINO TRANSFERASE 131 U/L (17-59); BILIRUBIN,DIRECT 0.3 mg/dL (0.0-0.4); BILIRUBIN,TOTAL 0.8 mg/dL (0.2-1.3); BLOOD UREA NITROGEN 8 mg/dL (7-20); CALCIUM 9.7 mg/dL (8.4-10.2); CARBON DIOXIDE 28 mmol/L (22-30); CHLORIDE 102 mmol/L (98-107); GLUCOSE 94 mg/dL (75-110); LIPASE 1738.7 U/L (23-300); POTASSIUM 4.7 mmol/L (3.6-5.0); SODIUM 141.2 mmol/L (137-145); TOTAL PROTEIN 8.3 g/dL (6.3-8.2)
[2017-04-01] MEDS ORDERED: NORMAL SALINE 1000 ML 1,000 ML IV ONE (23:40)
[2017-04-01] MEDS ORDERED: ONDANSETRON HCL INJ/PF 4 MG/2 ML SDV IV ONE (23:41)
[2017-04-01] MEDS ORDERED: MORPHINE SULFATE 10 MG/ML INJ IV PRN (23:41)
--- NOTE | 2017-04-01 23:57 | ER Document Report ---
ED General - General Chief Complaint: Abdominal Pain Stated Complaint: ABDOMINAL PAIN Time Seen by Provider: 04/01/17 21:50 Notes: Patient is a 36-year-old male with a past medical history of chronic alcohol and tobacco dependence, recurrent alcohol pancreatitis who presents with rapidly worsening epigastric abdominal pain that started approximately 4-5 hours prior to arrival. He admits to ongoing alcohol use including today which he believes was triggered by his alcohol use today. He states this feels exactly the same as his prior presentations. He has not seen a primary doctor regarding today's concerns. He notes that he feels nauseated but has not vomited. He tried half a tablet of a Percocet that he borrowed from a friend but he states this did not help his pain. He notes that he attempted eating or drinking worsens his pain. No fever or constitutional symptoms. TRAVEL OUTSIDE OF THE [place] IN LAST 30 DAYS: No - Related Data Allergies/Adverse Reactions: No Known Allergies Allergy (Verified 04/01/17 19:11) Past Medical History - General Information source: Patient - Social History Smoking Status: Current Every Day Smoker Frequency of alcohol use: Heavy Drug Abuse: Marijuana Lives with: Family Family History: Reviewed & Not Pertinent, DM, Other - Alcoholism Renal/ Medical History: Denies: Hx Peritoneal Dialysis Musculoskeltal Medical History: Reports Hx Musculoskeletal Trauma Psychiatric Medical History: Reports: Hx Anxiety Denies: Hx Depression Traumatic Medical History: Reports: Hx Fractures - right ankle - Immunizations Immunizations up to date: Yes Hx Diphtheria, Pertussis, Tetanus Vaccination: Yes Review of Systems - Review of Systems Notes: Constitutional: Negative for fever. HENT: Negative for sore throat. Eyes: Negative for visual changes. Cardiovascular: Negative for chest pain. Respiratory: Negative for shortness of breath. Gastrointestinal: Positive for abdominal pain and nausea Genitourinary: Negative for dysuria. Musculoskeletal: Negative for back pain. Skin: Negative for rash. Neurological: Negative for headaches, weakness or numbness. 10 point ROS negative except as marked above and in HPI. Physical Exam - Vital signs Vitals: Temp Pulse Resp BP Pulse Ox 98.9 F 82 20 110/78 96 04/01/17 19:19 04/01/17 19:19 04/01/17 19:19 04/01/17 19:19 04/01/17 19:19 Interpretation: Normal Notes: PHYSICAL EXAMINATION: GENERAL: Appears moderately uncomfortable but in no acute distress HEAD: Atraumatic, normocephalic. EYES: Pupils equal round and reactive to light, extraocular movements intact, sclera anicteric, conjunctiva are normal. ENT: nares patent, oropharynx clear without exudates. Moist mucous membranes. NECK: Normal range of motion, supple without lymphadenopathy LUNGS: Breath sounds clear to auscultation bilaterally and equal. No wheezes rales or rhonchi. HEART: Regular rate and rhythm without murmurs ABDOMEN: Soft, moderate epigastric tenderness to palpation otherwise no localized tenderness, normoactive bowel sounds. No guarding, no rebound. No masses appreciated. EXTREMITIES: Normal range of motion, no pitting or edema. No cyanosis. NEUROLOGICAL: No focal neurological deficits. Moves all extremities spontaneously and on command. PSYCH: Normal mood, normal affect. SKIN: Warm, Dry, normal turgor, no rashes or lesions noted. Course - Re-evaluation Re-evalutation: 04/01/17 23:53 Patient presents with clinical history and exam and labs to suggest acute pancreatitis. Lipase is markedly elevated today. Patient admits to alcohol use as the trigger for the acute episode of pancreatitis and has a history of the same in the past. At time of arrival, patient's vitals are within normal limits, and although he appears uncomfortable is in no acute distress. However , patient's pain has required ongoing doses of IV analgesia to be controlled. He also felt quite nauseated with even a single sip of water. He reports that he has never been able to be successfully managed as an outpatient despite oral nausea and pain medications at home has stating he is not comfortable with the discharge home. Will continue IV fluids, IV analgesia, and discuss for hospitalization with Dr. Juarez - Vital Signs Vital signs: Temp Pulse Resp BP Pulse Ox 98.9 F 82 20 110/78 96 04/01/17 19:19 04/01/17 19:19 04/01/17 19:19 04/01/17 19:19 04/01/17 19:19 - Laboratory Result Diagrams: 04/01/17 22:10 04/01/17 22:10 Laboratory results interpreted by me: 04/01/17 04/01/17 04/01/17 22:10 22:10 22:10 Seg Neutrophils % 84.1 H Lymphocytes % 9.6 L AST 131 H ALT 175 H Total Protein 8.3 H Lipase 1738.7 H Urine Ketones TRACE H
[2017-04-02] MEDS ORDERED: MORPHINE SULFATE 10 MG/ML INJ IV PRN (01:34)
[2017-04-02] MEDS ORDERED: HYDRALAZINE HCL INJ/PF 20 MG/1 ML SDV IV PRN (01:34)
[2017-04-02] MEDS ORDERED: MAG HYDROX/AL HYDROX/SIMETH SUSP 30 ML UDCUP PO PRN (01:35)
[2017-04-02] MEDS ORDERED: IPRATROPIUM/ALBUTEROL 0.5-2.5 MG/3 ML AMPUL NEB PRN (01:35)
[2017-04-02] MEDS ORDERED: ONDANSETRON HCL INJ/PF 4 MG/2 ML SDV IV PRN (01:35)
[2017-04-02] MEDS ORDERED: PROMETHAZINE HCL 25 MG TABLET PO PRN (01:39)
--- NOTE | 2017-04-02 03:13 | PDOC H&P ---
History of Present Illness Admission Date/PCP: 04/02/17 01:56 Patient complains of: Abdominal pain and nausea History of Present Illness: SHARON WEBBER is a 36 year old male with past medical history of alcohol and tobacco dependence with recurrent alcoholic pancreatitis. Patient presents after development of epigastric abdominal pain that radiated to the back associated with loose stools and nausea. Recognizing the symptoms from previous episodes she reports to the emergency room for evaluation where he is found to have an elevated lipase of 1738, intolerant of p.o. with nausea. Patient admits to ongoing alcohol dependence of approximately 12 beers per day. He denies a history of alcohol withdrawal DTs, blackouts or seizure. Past Medical History Cardiac Medical History: Reports: None Pulmonary Medical History: Reports: None EENT Medical History: Reports: None Neurological Medical History: Reports: None Endocrine Medical History: Reports: None Malignancy Medical History: Reports: None GI Medical History: Reports: Other - Alcoholic pancreatitis Musculoskeltal Medical History: Reports: None Skin Medical History: Reports: None Psychiatric Medical History: Reports: Alcohol Dependency, Substance Abuse, Tobacco Dependency Denies: Depression Past Surgical History Past Surgical History: Reports: None Social History Information Source: Patient Lives with: Family Smoking Status: Current Every Day Smoker Frequency of Alcohol Use: Heavy Hx Recreational Drug Use: No Drugs: Marijuana Hx Prescription Drug Abuse: No - Advance Directive Resuscitation Status: Full Code Family History Family History: DM, Other - Alcoholism Parental Family History Reviewed: Yes Children Family History Reviewed: Yes Sibling(s) Family History Reviewed.: Yes Medication/Allergy Home Medications: Promethazine HCl [Phenergan 25 mg Tablet] 25 mg PO Q6HP PRN 09/03/16 Diazepam [Valium 5 mg Tablet] 5 mg PO TID #12 tablet 10/30/16 Allergies/Adverse Reactions: No Known Allergies Allergy (Verified 04/01/17 19:11) Review of Systems Constitutional: ABSENT: chills, fever(s), headache(s), weight gain, weight loss Eyes: ABSENT: visual disturbances Ears: ABSENT: hearing changes Cardiovascular: ABSENT: chest pain, dyspnea on exertion, edema, orthropnea, palpitations Respiratory: ABSENT: cough, hemoptysis Gastrointestinal: ABSENT: abdominal pain, constipation, diarrhea, hematemesis, hematochezia, nausea, vomiting Genitourinary: ABSENT: dysuria, hematuria Musculoskeletal: ABSENT: joint swelling Integumentary: ABSENT: rash, wounds Neurological: ABSENT: abnormal gait, abnormal speech, confusion, dizziness, focal weakness, syncope Psychiatric: ABSENT: anxiety, depression, homidical ideation, suicidal ideation Endocrine: ABSENT: cold intolerance, heat intolerance, polydipsia, polyuria Hematologic/Lymphatic: ABSENT: easy bleeding, easy bruising Physical Exam Vital Signs: Temp Pulse Resp BP Pulse Ox 98.7 F 97 18 125/77 95 04/02/17 02:07 04/02/17 02:07 04/02/17 02:07 04/02/17 02:07 04/02/17 02:07 General appearance: PRESENT: mild distress, well-developed, well-nourished Head exam: PRESENT: atraumatic, normocephalic Eye exam: PRESENT: conjunctiva pink, EOMI, PERRLA. ABSENT: scleral icterus Ear exam: PRESENT: normal external ear exam Mouth exam: PRESENT: moist, tongue midline Neck exam: ABSENT: carotid bruit, JVD, lymphadenopathy, thyromegaly Respiratory exam: PRESENT: clear to auscultation kosta. ABSENT: rales, rhonchi, wheezes Cardiovascular exam: PRESENT: RRR. ABSENT: diastolic murmur, rubs, systolic murmur Pulses: PRESENT: normal dorsalis pedis pul Vascular exam: PRESENT: normal capillary refill GI/Abdominal exam: PRESENT: hyperactive bowel sounds, normal bowel sounds, soft , tenderness. ABSENT: ascites, diminished bowel sounds, distended, guarding, mass, organolmegaly, rebound Rectal exam: PRESENT: deferred Extremities exam: PRESENT: full ROM. ABSENT: calf tenderness, clubbing, pedal edema Neurological exam: PRESENT: alert, awake, oriented to person, oriented to place , oriented to time, oriented to situation, CN II-XII grossly intact. ABSENT: motor sensory deficit Psychiatric exam: PRESENT: appropriate affect, normal mood. ABSENT: homicidal ideation, suicidal ideation Skin exam: PRESENT: dry, intact, warm. ABSENT: cyanosis, rash Assessment & Plan - Diagnosis (1) Pancreatitis Is this a current diagnosis for this admission?: Yes Plan: Medical floor, IV fluid, bowel rest, symptomatic management. Trial liquid diet when pain resolves (2) Alcohol abuse Is this a current diagnosis for this admission?: Yes Plan: No history of DTs, thiamine and folate. Patient does not express interest in rehab (3) Abdominal pain Is this a current diagnosis for this admission?: Yes Plan: Toradol IV, avoidance of narcotics given history of substance abuse (4) Tobacco dependence Is this a current diagnosis for this admission?: Yes Plan: Tobacco Dependence patient received tobacco cessation counseling and offered nicotine replacement options - Time Time Spent: 30 to 50 Minutes - Inpatient Certification Medical Necessity: Need Close Monitoring Due to Risk of Patient Decompensation
[2017-04-02] MEDS: KETOROLAC TROMETHAMINE INJ/PF 30 MG/1 ML SDV IV PRN ×3 (03:51→16:01)
[2017-04-02 04:38] LABS: ABSOLUTE LYMPHOCYTES (AUTO) 0.9 10^3/uL (0.5-4.7); ABSOLUTE MONOCYTES (AUTO) 0.5 10^3/uL (0.1-1.4); ABSOLUTE NEUT (AUTO) 5.4 10^3/uL (1.7-8.2); BASOPHILS % (AUTO) 0.6 % (0-2); EOSINOPHILS % (AUTO) 0.1 % (0-6); HEMATOCRIT 40.2 % (37.9-51.0); HEMOGLOBIN 13.5 g/dL (13.5-17.0); LYMPHOCYTES % (AUTO) 12.7 % (13-45); MEAN CORPUSCULAR HEMOGLOBIN 30.9 pg (27.0-33.4); MEAN CORPUSCULAR HGB CONC 33.5 g/dL (32.0-36.0); MEAN CORPUSCULAR VOLUME 92 fl (80-97); MONOCYTES % (AUTO) 6.8 % (3-13); PLATELET COUNT 127 10^3/uL (150-450); RED BLOOD COUNT 4.36 10^6/uL (4.35-5.55); RED CELL DISTRIBUTION WIDTH 13.1 % (11.5-14.0); SEGMENTED NEUTROPHILS % (AUTO) 79.8 % (42-78); TOTAL CELLS COUNTED % (AUTO) 100 %; WHITE BLOOD COUNT 6.8 10^3/uL (4.0-10.5)
[2017-04-02 04:58] LABS: ALANINE AMINOTRANSFERASE 151 U/L (21-72); ALBUMIN 4.1 g/dL (3.5-5.0); ALKALINE PHOSPHATASE 55 U/L (38-126); ANION GAP 10 (5-19); ASPARTATE AMINO TRANSFERASE 95 U/L (17-59); BILIRUBIN,DIRECT 0.3 mg/dL (0.0-0.4); BILIRUBIN,TOTAL 0.8 mg/dL (0.2-1.3); BLOOD UREA NITROGEN 9 mg/dL (7-20); CALCIUM 9.2 mg/dL (8.4-10.2); CARBON DIOXIDE 25 mmol/L (22-30); CHLORIDE 105 mmol/L (98-107); CHOLESTEROL 222.33 mg/dL (0-200); GLUCOSE 86 mg/dL (75-110); POTASSIUM 4.6 mmol/L (3.6-5.0); SODIUM 139.6 mmol/L (137-145); TOTAL PROTEIN 7.2 g/dL (6.3-8.2); TRIGLYCERIDES 106 mg/dL (<150)
[2017-04-02] MEDS: NORMAL SALINE 1000 ML 1,000 ML IV PRN ×3 (05:01→14:00)
[2017-04-02 05:09] LABS: DIRECT LDL 108 mg/dL (<100)
[2017-04-02] MEDS: THIAMINE HCL 100 MG, FOLIC ACID 1 MG in NORMAL SALINE 250 ML IV SCH (09:46)
[2017-04-02] MEDS ORDERED: DIAZEPAM 5 MG TABLET PO SCH (10:00)
[2017-04-02] MEDS ORDERED: NALBUPHINE HCL INJ 10 MG/1 ML AMPULE ONE (20:10)
[2017-04-02] MEDS: NALBUPHINE HCL INJ 10 MG/1 ML AMPULE INJ PRN (20:17)
[2017-04-03] MEDS: KETOROLAC TROMETHAMINE INJ/PF 30 MG/1 ML SDV IV PRN ×2 (01:01→14:14)
[2017-04-03 07:06] LABS: ABSOLUTE EOSINOPHILS # (AUTO) 0.1 10^3/uL (0.0-0.6); ABSOLUTE LYMPHOCYTES (AUTO) 0.8 10^3/uL (0.5-4.7); ABSOLUTE MONOCYTES (AUTO) 0.7 10^3/uL (0.1-1.4); BASOPHILS % (AUTO) 0.5 % (0-2); EOSINOPHILS % (AUTO) 1.3 % (0-6); HEMATOCRIT 37.6 % (37.9-51.0); HEMOGLOBIN 12.6 g/dL (13.5-17.0); LYMPHOCYTES % (AUTO) 15.1 % (13-45); MEAN CORPUSCULAR HEMOGLOBIN 31.3 pg (27.0-33.4); MEAN CORPUSCULAR HGB CONC 33.5 g/dL (32.0-36.0); MEAN CORPUSCULAR VOLUME 93 fl (80-97); MONOCYTES % (AUTO) 12.2 % (3-13); PLATELET COUNT 106 10^3/uL (150-450); RED BLOOD COUNT 4.03 10^6/uL (4.35-5.55); RED CELL DISTRIBUTION WIDTH 12.6 % (11.5-14.0); SEGMENTED NEUTROPHILS % (AUTO) 70.9 % (42-78); TOTAL CELLS COUNTED % (AUTO) 100 %; WHITE BLOOD COUNT 5.6 10^3/uL (4.0-10.5)
[2017-04-03 07:26] LABS: ALANINE AMINOTRANSFERASE 99 U/L (21-72); ALBUMIN 3.5 g/dL (3.5-5.0); ALKALINE PHOSPHATASE 51 U/L (38-126); ANION GAP 9 (5-19); ASPARTATE AMINO TRANSFERASE 49 U/L (17-59); BILIRUBIN,DIRECT 0.3 mg/dL (0.0-0.4); BILIRUBIN,TOTAL 0.9 mg/dL (0.2-1.3); BLOOD UREA NITROGEN 11 mg/dL (7-20); CALCIUM 8.9 mg/dL (8.4-10.2); CARBON DIOXIDE 28 mmol/L (22-30); CHLORIDE 103 mmol/L (98-107); CHOLESTEROL 181.57 mg/dL (0-200); GLUCOSE 70 mg/dL (75-110); SODIUM 139.6 mmol/L (137-145); TOTAL PROTEIN 6.4 g/dL (6.3-8.2); TRIGLYCERIDES 126 mg/dL (<150)
[2017-04-03 07:37] LABS: DIRECT LDL 86 mg/dL (<100)
[2017-04-03] MEDS: NALBUPHINE HCL INJ 10 MG/1 ML AMPULE INJ PRN ×2 (08:13→20:57)
[2017-04-03] MEDS: THIAMINE HCL 100 MG, FOLIC ACID 1 MG in NORMAL SALINE 250 ML IV SCH (10:40)
--- NOTE | 2017-04-03 14:04 | PROGRESS NOTE E ---
Progress Note NAME: SHARON WEBBER : 1980 AGE: 36Y DATE: 04/03/2017 ROOM: 213 SUBJECTIVE: The patient is currently lying in bed. He states that he does feel better today in comparison to admission. The patient denies any vomiting today. No shortness of breath, dizziness, chest pain. Does admit to some nausea. The patient has been afebrile. His blood pressure has been in a good range, and the patient has not voiced any other concerns at this time. REVIEW OF SYSTEMS: Negative. MEDICATIONS: Reviewed. OBJECTIVE: GENERAL: The patient is a 36-year-old male, who is awake, alert and oriented to person, place and situation. He is verbal and conversational and does not appear to be in any acute distress. VITAL SIGNS: Temperature is 98.6, pulse 59, respirations 18, blood pressure 140/82, oxygen saturation 99% on room air. SKIN: Warm and dry. No rashes. He is not diaphoretic. HEENT: Pupils equal, round, reactive to light and accommodation. Conjunctivae are pink. There is no evidence of JVD. CVS: Heart is regular. There is no murmur or rub. CHEST: Clear, symmetrical, unlabored. ABDOMEN: Does have some generalized tenderness. No guarding. Bowel sounds are present. EXTREMITIES: No clubbing, cyanosis or edema. PSYCHIATRIC: Appropriate affect and pleasant mood. DIAGNOSTICS: Lab values are as follows: Hematology obtained on 04/03/2017: WBCs are 5.6, hemoglobin is 12.6, hematocrit is 37.6, platelet count is 106,000. Chemistry obtained on 04/03/2017: Sodium is 139, potassium is 4.0, chloride is 103, carbon dioxide 28. BUN 11, creatinine is 1.84. Glucose 70. Calcium is 8.9. Bilirubin is 0.9. AST 49, alk phos 99. Albumin 3.5. Triglycerides are 126. Lipase is 486. IMPRESSION AND PLAN: 1. ACUTE ALCOHOLIC PANCREATITIS. Will advance the patient's diet to a clear liquid diet, non-fat, given that the patient has had lipases return to normal. Will repeat lipase in the a.m. and follow. Continue supportive therapy. 2. ALCOHOL DEPENDENCY, CONTINUOUS. The patient does not appear to have any evidence of withdrawal at this time. Will transition the patient's banana bag over to oral B vitamin supplements. Will follow. 3. HYPERTENSION, POSSIBLY SECONDARY TO HIS ALCOHOLISM. Will continue p.r.n. coverage for now. DISPOSITION: The patient is a FULL CODE. Pending the patient's symptomatology and diagnostic findings, will reevaluate in the a.m. for discharge. Time spent on this followup, including assessment, plan, physical examination, patient education and review of records was 25 minutes. DICTATING PHYSICIAN: CANDI GOLDMAN NP [id number] PHY#: [id number] ID: [id number] JOB#: [id number] ACCT: [id number] cc: >
[2017-04-03] MEDS ORDERED: NALBUPHINE HCL INJ 10 MG/1 ML AMPULE ONE (20:52)
[2017-04-04] MEDS: KETOROLAC TROMETHAMINE INJ/PF 30 MG/1 ML SDV IV PRN (02:25)
[2017-04-04 08:58] VITALS: BP 141/95
--- NOTE | 2017-04-04 09:04 | DISCHARGE SUMMARY E ---
Discharge Summary NAME: SHARON WEBBER : 1980 AGE: 36Y ADMITTED: 04/02/2017 DISCHARGED: 04/04/2017 PRIMARY CARE PROVIDER: [facility] DISCHARGE DIAGNOSES: Includes: 1. Recurrent alcoholic pancreatitis. 2. Alcohol dependency, continuous. 3. Transaminitis. DISCHARGE MEDICATIONS: Include: 1. Folic acid 1 mg p.o. daily, 30 tablets, 0 refills. 2. Thiamine 100 mg p.o. daily, 30 tablets, 0 refills. DIET: Fat free as tolerated. ACTIVITY: As tolerated. CONDITION: Good. DISCHARGE LABORATORIES: Include hematology obtained on 04/03/2017: WBCs are 5.6, hemoglobin is 12.6, hematocrit is 37.6, platelet count is 106,000. Chemistry obtained on 04/03/2017: Sodium is 139, potassium 4.0, chloride is 102, carbon dioxide 28, BUN 11, creatinine is 0.84, glucose 86, calcium is 8.9, bilirubin is 0.9. AST 49, ALT is 99, Alk phos 51. Total protein 6.4, albumin 3.5. Triglycerides are 126, cholesterol 181, LDL 86, VLDL is 25, HDL is 62, lipase is 386. PHYSICAL EXAMINATION: GENERAL: On examination, the patient is a well-developed, well-nourished 36-year-old -[place] male who is awake, alert, and oriented to person, place, time, and situation. He is verbal, conversational, ambulatory, does not appear to be in acute distress. VITAL SIGNS: Temperature is 98.1, pulse 55, respirations 16, blood pressure is 140/91, oxygen saturation 100% on room air. SKIN: Warm and dry. No rash. Not diaphoretic. HEENT: Pupils equal, round, and reactive to light and accommodation. Conjunctiva is pink. There is no evidence of JVP. CARDIOVASCULAR SYSTEM: Heart is regular. There is no murmur or rub. CHEST: Clear, symmetrical, unlabored. ABDOMEN: Soft, nontender, nondistended. BACK: No CVA tenderness or sacral edema. EXTREMITIES: No clubbing, cyanosis, edema. PSYCHIATRIC: Appropriate affect, pleasant mood. HISTORY OF PRESENT ILLNESS: The patient is a 36-year-old -[place] male with a past medical history of alcoholism and subsequent multiple admissions for alcoholic pancreatitis. The patient presented to the emergency department with a chief complaint of abdominal pain and nausea. The patient also noted epigastric and abdominal pain, which radiated to his back, which he associated with previous episodes of pancreatitis. The patient's lipase was found to be 1738. The patient was intolerant of p.o. intake as well as ongoing nausea. The patient drinks approximately 12 beers a day, but denies any history of alcohol withdrawal, blackout seizures, and the patient was referred to the hospitalist for admission and management. HOSPITAL COURSE: The patient was admitted to continuous medical unit. The patient was hydrated and the patient's AST, ALT came down to 49 and 99 respectively. The patient's admitting lipase was found to be 1738, which trended down to 300 range. The patient's symptoms improved and the patient was started on a diet for which he tolerated without issue. The patient had no evidence of alcohol withdrawal and was supplemented B vitamins. The patient, who is normally not hypertensive, had episodes of hypertension during his stay, which is related to anxiety and agitation at times. The patient is afebrile, blood pressure has been in a decent range, and the patient is ready discharge. As within previous admissions, did discuss rehabilitation and outpatient treatment for substance abuse, particularly his alcoholism. The patient declines this, citing that he has no interest in participating in this. In spite of the patient having numerous ER contacts and 3 inpatient stays within the last calendar year for this, he does not feel that he is to the point of needing any sort of detox versus rehab. DISCHARGE PLANNING: The patient is advised to follow up with the [facility] within 1-2 weeks for hospital followup. Time spent on this discharge including assessment, plan, physical examination, patient education, review of records is 25 minutes. DICTATING PHYSICIAN: CANDI GOLDMAN NP [id number] PHY#: [id number] ID: [id number] JOB#: [id number] ACCT: [id number] cc:BRYON VINCENT M.D. CANDI GOLDMAN NP > MTDD
[2017-04-04] MEDS ORDERED: THIAMINE HCL 100 MG TABLET PO SCH (10:00)
[2017-04-04] MEDS ORDERED: FOLIC ACID 1 MG TABLET PO SCH (10:00)
== END 2017-04-04 09:16 | disposition home or self-care (01) ==
LOC: ER 18:54 → EH 04-02 01:56 → 2N 04-02 04:58
PROVIDERS: ADMIT Internal Medicine; ATTEND Internal Medicine
DX: K86.0 Alcohol-induced chronic pancreatitis (principal); F10.20 Alcohol dependence, uncomplicated; R74.0 Nonspecific elevation of levels of transaminase and lactic acid dehydrogenase [LDH]; I10 Essential (primary) hypertension; F41.9 Anxiety disorder, unspecified; R45.1 Restlessness and agitation; F17.200 Nicotine dependence, unspecified, uncomplicated; F12.10 Cannabis abuse, uncomplicated; Z81.1 Family history of alcohol abuse and dependence
CPT/HCPCS: 99285; 96361; 96374; 96375; 36415 ×3; 83690 ×3; 85025 ×3; 80053 ×3; 81001; 80061 ×2; G0378 ×4; S0119; J3490 ×2; J1885 ×3; J2270; J2300 ×2; J3411 ×2; J2405; J7030 ×2; J7050 ×2